=== PATIENT | female | born 1955 | race Caucasian/White ===

== ENCOUNTER 2016-08-29 19:31 | Emergency (ER) | payer SELFPAY ==
[2016-08-29] MEDS ORDERED: ROCEPHIN 1 Gm-D5w 50 ml Bag** 50 ML IV ONE ×2 (19:38→19:47)
[2016-08-29] MEDS ORDERED: Zithromax 500 MG/ 250 ML NaCl Premix 250 ML IV ONE ×2 (19:38→19:46)
[2016-08-29] MEDS ORDERED: PROVENTIL 2.5 MG/3 ML NEB IH ONE ×2 (19:38→19:51)
[2016-08-29] MEDS ORDERED: Nitrostat 0.4 MG (ED) SL ONE ×2 (19:40→19:46)
[2016-08-29] MEDS ORDERED: BABY ASPIRIN 81 MG CHEW PO ONE (19:43)
[2016-08-29] MEDS ORDERED: Sodium Chloride 0.9% 1000 ML 1,000 ML IV SCH (19:45)
[2016-08-29] MEDS ORDERED: BABY ASPIRIN 81 MG CHEW ONE (19:46)
[2016-08-29] MEDS ORDERED: Sodium Chloride 0.9% 1000 ML 1,000 ML ONE (19:46)
--- NOTE | 2016-08-29 19:49 | ERPHSYRPT ---
- History of Present Illness Time Seen by Provider: 08/29/16 19:37 Historian: patient Exam Limitations: no limitations Patient Subjective Stated Complaint: Pt sts intermittent chest pain substernal 8 /10 to 10/10 radiating through to back. Sts intermittent diaphoresis and shortness of breath with pain. Sts burning sensation. Has hx of GERD, DC, HTN. Sts taken tums and Prilosec x 2 today. Triage Nursing Assessment: Pt alert, oriented, answers all questions appropriately. Skin p/w/d, resps non-labored. Pt ambulatory to tx room, steady gait noted. Pt speaking in full sentences without difficulty. Physician History: FOR THE PAST 9 HOURS PT HAS HAD BURNING LOWER MID CHEST PAIN WITH DIAPHORESIS AND SOME SHORTNESS OF AIR; DENIES FEVER, VOMITING, DIARRHEA, ABDOMINAL PAIN. PT HAS HAD COUGH PRODUCTIVE OF GREEN PHLEGM FOR THE PAST 3 WEEKS AND IS ON DAY 9 OF DOXYCYCLINE. Aspirin Treatment Today: 81 mg x 4, provided by ED Allergies/Adverse Reactions: sumatriptan [From Imitrex] Allergy (Verified 08/29/16 19:42) sumatriptan succinate [From Imitrex] Allergy (Verified 08/29/16 19:42) naproxen [From Naprosyn] Adverse Reaction (Verified 08/29/16 19:42) Home Medications: Docusate Sodium 100 mg [Colace 100 MG] 300 mg PO DAILY 02/02/16 [History] Hydrocodone Bit/Acetaminophen [Hydrocodon-Acetaminophn 10-325] 1 each PO Q4HPRN PRN 02/02/16 [History] Metoprolol Tartrate 100 mg PO BID 02/02/16 [History] Nortriptyline HCl [Pamelor] 75 mg PO HS 02/02/16 [History] Pregabalin [Lyrica] 75 mg PO QID 02/02/16 [History] Promethazine HCl 50 mg PO Q6HPRN PRN 02/02/16 [History] Doxycycline Hyclate 100 mg PO BID 08/29/16 [History] Omeprazole [Prilosec] 40 mg PO DAILY 08/29/16 [History] Topiramate [Topamax] 0 mg PO 08/29/16 [History] Hx Tetanus, Diphtheria Vaccination/Date Given: Yes Hx Influenza Vaccination/Date Given: No Hx Pneumococcal Vaccination/Date Given: No Immunizations Up to Date: No - Review of Systems Constitutional: No Fever Respiratory: Cough, Dyspnea Cardiac: Chest Pain Abdominal/Gastrointestinal: No Abdominal Pain, No Nausea, No Vomiting, No Diarrhea Skin: No Rash Endocrine: Excessive Sweating All Other Systems: Reviewed and Negative - Past Medical History Pertinent Past Medical History: Yes Neurological History: Other ENT History: No Pertinent History Cardiac History: Hypertension Respiratory History: Other (smoker) Endocrine Medical History: No Pertinent History Musculoskeletal History: No Pertinent History GI Medical History: No Pertinent History History: No Pertinent History Psycho-Social History: No Pertinent History Female Reproductive Disorders: No Pertinent History Other Medical History: Migraines, pinched nerve in back - Past Surgical History Past Surgical History: Yes Cardiac: No Pertinent History Respiratory: No Pertinent History Gastrointestinal: No Pertinent History Musculoskeletal: No Pertinent History Female Surgical History: Section Other Surgical History: D/C, Dermoid cyst removed from head - Social History Smoking Status: Former smoker How long have you smoked: 30 Exposure to second hand smoke: No Alcohol Use: Socially Drug Use: none Patient Lives Alone: No Significant Family History: no pertinent family hx - Female History Hx Now: No - Nursing Vital Signs Temperature: 97.4 F Temperature Source: Oral Pulse Rate: 72 Respiratory Rate: 16 Blood Pressure: 151/74 Pain Intensity: 8 - Physical Exam General Appearance: alert, anxiety Eye Exam: PERRL/EOMI Ears, Nose, Throat Exam: TMs normal, moist mucous membranes, pharyngeal erythema (MILD) Neck Exam: normal inspection Respiratory Exam: wheezing (MINIMAL EXPIRATORY WHEEZING OVER POSTERIOR BASES.) Cardiovascular Exam: normal heart sounds Gastrointestinal/Abdomen Exam: soft, normal bowel sounds Back Exam: normal range of motion Extremity Exam: normal inspection, No pedal edema Neurologic Exam: alert, cooperative Skin Exam: warm, dry SpO2 Interpretation: normal SpO2: 94 Oxygen Delivery: Room Air - Course Nursing assessment & vital signs reviewed: Yes EKG Interpreted by Me: RATE (61), Sinus Rhythm, NORMAL AXIS, NORMAL INTERVALS - Radiology Exams Chest X-ray Interpretation: Interpreted by me (NODULE LEFT LOWER LUNG(OLD)) Ordered Tests: Active Orders 24 hr Category Date Time Status Production Stage Manager STAT Care 08/29/16 19:38 Active EKG-ER Only STAT Care 08/29/16 19:38 Active IV Insertion STAT Care 08/29/16 19:38 Active Oxygen-ED Only NASAL CANNULA 2 lpm Care 08/29/16 19:38 Active Pulse Oximetry (ED) STAT Care 08/29/16 19:38 Active CHEST 1 VIEW (PORTABLE) Stat Exams 08/29/16 19:39 Taken AMYLASE Stat Lab 08/29/16 19:59 Completed BLOOD CULTURE Stat Lab 08/29/16 20:03 Received CBC W DIFF Stat Lab 08/29/16 19:59 Completed CMP Stat Lab 08/29/16 19:59 Completed CULTURE, THROAT Stat Lab 08/29/16 20:03 Received CULTURE,SPUTUM Stat Lab 08/29/16 21:02 Received LIPASE Stat Lab 08/29/16 19:59 Completed MAGNESIUM Stat Lab 08/29/16 19:59 Completed Manual Differential NC Stat Lab 08/29/16 19:59 Completed C[place]ay Screen Stat Lab 08/29/16 20:03 Completed NT PRO BNP Stat Lab 08/29/16 19:59 Completed PROTIME WITH INR Stat Lab 08/29/16 19:59 Completed PTT Stat Lab 08/29/16 19:59 Completed STREP SCREEN-BETA A Stat Lab 08/29/16 20:03 Completed TROPONIN Stat Lab 08/29/16 19:59 Completed Respiratory Nebulizer STAT RT 08/29/16 19:40 Completed Medication Summary Generic Name Dose Route Start Last Admin Trade Name Freq PRN Reason Stop Dose Admin Sodium Chloride 1,000 mls @ 100 mls/hr 08/29/16 19:45 08/29/16 19:52 Sodium Chloride 0.9% 1000 Ml IV 09/28/16 19:44 100 mls/hr .Q10H GILMER Administration Discontinued Medications Generic Name Dose Route Start Last Admin Trade Name Freq PRN Reason Stop Dose Admin Albuterol Sulfate 2.5 mg 08/29/16 19:38 08/29/16 19:57 Proventil 2.5 Mg/3 Ml Neb IH 08/29/16 19:39 2.5 mg STAT ONE Administration Albuterol Sulfate Confirm 08/29/16 19:51 Proventil 2.5 Mg/3 Ml Neb Administered 08/29/16 19:52 Dose 2.5 mg IH .STK-MED ONE Aspirin 324 mg 08/29/16 19:43 08/29/16 19:52 Baby Aspirin 81 Mg Chew PO 08/29/16 19:44 324 mg STAT ONE Administration Aspirin Confirm 08/29/16 19:46 Baby Aspirin 81 Mg Chew Administered 08/29/16 19:47 Dose 324 mg .ROUTE .STK-MED ONE Diazepam 5 mg 08/29/16 21:07 08/29/16 21:12 Valium 5 Mg PO 08/29/16 21:08 5 mg STAT ONE Administration Diazepam Confirm 08/29/16 21:11 Valium 5 Mg Administered 08/29/16 21:12 Dose 5 mg .ROUTE .STK-MED ONE Azithromycin 250 mls @ 125 mls/hr 08/29/16 19:38 08/29/16 20:17 Zithromax 500 Mg/ 250 Ml Nacl Premix IV 08/29/16 21:37 125 mls/hr STAT ONE Administration Ceftriaxone Sodium/Dextrose 50 mls @ 100 mls/hr 08/29/16 19:38 08/29/16 19:52 Rocephin 1 Gm-D5w 50 Ml Bag IV 08/29/16 20:07 100 mls/hr STAT ONE Administration Azithromycin Confirm 08/29/16 19:46 Zithromax 500 Mg/ 250 Ml Nacl Premix Administered 08/29/16 19:47 Dose 250 mls @ ud IV .STK-MED ONE Sodium Chloride Confirm 08/29/16 19:46 Sodium Chloride 0.9% 1000 Ml Administered 08/29/16 19:47 Dose 1,000 mls @ ud .ROUTE .STK-MED ONE Ceftriaxone Sodium/Dextrose Confirm 08/29/16 19:47 Rocephin 1 Gm-D5w 50 Ml Bag Administered 08/29/16 19:48 Dose 50 mls @ ud IV .STK-MED ONE Sodium Chloride 1,000 mls @ 999 mls/hr 08/29/16 21:07 08/29/16 21:12 Sodium Chloride 0.9% 1000 Ml IV 08/29/16 22:07 999 mls/hr .Q1H1M STA Administration Nitroglycerin 0.4 mg 08/29/16 19:40 08/29/16 19:52 Nitrostat 0.4 Mg (Ed) SL 08/29/16 19:41 0.4 mg STAT ONE Administration Nitroglycerin Confirm 08/29/16 19:46 Nitrostat 0.4 Mg (Ed) Administered 08/29/16 19:47 Dose 0.4 mg SL .STK-MED ONE Lab/Rad Data: Laboratory Result Diagrams 08/29/16 19:59 08/29/16 19:59 Laboratory Results 08/29/16 08/29/16 08/29/16 Range/Units 20:03 20:03 20:03 WBC (4.0-10.5) K/mm3 RBC (4.1-5.4) M/mm3 Hgb (12.0-16.0) gm/dl Hct (35-47) % MCV (78-100) fl MCH (26-32) pg MCHC (32-36) g/dl RDW (11.5-14.0) % Plt Count (150-450) K/mm3 MPV (6-9.5) fl Segmented Neutrophils (36.0-66.0) % Band Neutrophils (0.0-2.0) % Lymphocytes (Manual) (24-44) % Monocytes (Manual) (0.0-12.0) % Eosinophils (Manual) (0.00-3.0) % Atypical Lymphocytes % INR (0.8-3.0) PTT (25.3-37.0) SECONDS Sodium (136-145) mEq/L Potassium (3.5-5.1) mEq/L Chloride (98-107) mEq/L Carbon Dioxide (21-32) mEq/L Anion Gap (5-15) MEQ/L BUN (9-20) mg/dL Creatinine (0.55-1.30) mg/dl Estimated GFR ML/MIN Glucose (70-110) MG/DL Calcium (8.5-10.1) mg/dL Magnesium (1.8-2.4) mg/dL Total Bilirubin (0.2-1.0) mg/dL AST (15-37) U/L ALT (12-78) U/L Alkaline Phosphatase (46-116) U/L Troponin I (0.000-0.056) ng/ml NT-Pro-B Natriuret Pep (0-125) pg/ml Serum Total Protein (6.4-8.2) gm/dL Albumin (3.4-5.0) g/dL Amylase (25-115) U/L Lipase (73-393) U/L Monoscreen NEGATIVE (Negative) Streptococcus Screen NEGATIVE (Negative) Resp Infection Panel NEGATIVE (Negative) 08/29/16 08/29/16 08/29/16 Range/Units 19:59 19:59 19:59 WBC (4.0-10.5) K/mm3 RBC (4.1-5.4) M/mm3 Hgb (12.0-16.0) gm/dl Hct (35-47) % MCV (78-100) fl MCH (26-32) pg MCHC (32-36) g/dl RDW (11.5-14.0) % Plt Count (150-450) K/mm3 MPV (6-9.5) fl Segmented Neutrophils (36.0-66.0) % Band Neutrophils (0.0-2.0) % Lymphocytes (Manual) (24-44) % Monocytes (Manual) (0.0-12.0) % Eosinophils (Manual) (0.00-3.0) % Atypical Lymphocytes % INR 0.96 (0.8-3.0) PTT 27.1 (25.3-37.0) SECONDS Sodium 140 (136-145) mEq/L Potassium 4.6 (3.5-5.1) mEq/L Chloride 102 (98-107) mEq/L Carbon Dioxide 28.9 (21-32) mEq/L Anion Gap 13.2 (5-15) MEQ/L BUN 28 H (9-20) mg/dL Creatinine 1.03 (0.55-1.30) mg/dl Estimated GFR 58 ML/MIN Glucose 109 (70-110) MG/DL Calcium 9.2 (8.5-10.1) mg/dL Magnesium 2.2 (1.8-2.4) mg/dL Total Bilirubin 0.2 (0.2-1.0) mg/dL AST 13 L (15-37) U/L ALT 26 (12-78) U/L Alkaline Phosphatase 100 (46-116) U/L Troponin I < 0.017 (0.000-0.056) ng/ml NT-Pro-B Natriuret Pep 66 (0-125) pg/ml Serum Total Protein 7.1 (6.4-8.2) gm/dL Albumin 3.7 (3.4-5.0) g/dL Amylase 27 (25-115) U/L Lipase 111 (73-393) U/L Monoscreen (Negative) Streptococcus Screen (Negative) Resp Infection Panel (Negative) 08/29/16 Range/Units 19:59 WBC 10.1 (4.0-10.5) K/mm3 RBC 4.84 (4.1-5.4) M/mm3 Hgb 13.4 (12.0-16.0) gm/dl Hct 41.1 (35-47) % MCV 84.9 (78-100) fl MCH 27.7 (26-32) pg MCHC 32.6 (32-36) g/dl RDW 15.5 H (11.5-14.0) % Plt Count 349 (150-450) K/mm3 MPV 9.8 H (6-9.5) fl Segmented Neutrophils 36 (36.0-66.0) % Band Neutrophils 1 (0.0-2.0) % Lymphocytes (Manual) 36 (24-44) % Monocytes (Manual) 7 (0.0-12.0) % Eosinophils (Manual) 1 (0.00-3.0) % Atypical Lymphocytes 19 % INR (0.8-3.0) PTT (25.3-37.0) SECONDS Sodium (136-145) mEq/L Potassium (3.5-5.1) mEq/L Chloride (98-107) mEq/L Carbon Dioxide (21-32) mEq/L Anion Gap (5-15) MEQ/L BUN (9-20) mg/dL Creatinine (0.55-1.30) mg/dl Estimated GFR ML/MIN Glucose (70-110) MG/DL Calcium (8.5-10.1) mg/dL Magnesium (1.8-2.4) mg/dL Total Bilirubin (0.2-1.0) mg/dL AST (15-37) U/L ALT (12-78) U/L Alkaline Phosphatase (46-116) U/L Troponin I (0.000-0.056) ng/ml NT-Pro-B Natriuret Pep (0-125) pg/ml Serum Total Protein (6.4-8.2) gm/dL Albumin (3.4-5.0) g/dL Amylase (25-115) U/L Lipase (73-393) U/L Monoscreen (Negative) Streptococcus Screen (Negative) Resp Infection Panel (Negative) - Departure Time of Disposition: 22:29 Departure Disposition: Home Clinical Impression: BRONCHITIS, PHARYNGITIS, MILD DEHYDRATION Condition: Fair Critical Care Time: No Instructions: Chest Pain, Bronchitis Additional Instructions: FOLLOW UP WITH PRIVATE DOCTOR TOMORROW. Prescriptions: Guaifenesin/Codeine Phosphate [Robitussin AC Syrup] 10 ml PO Q4H PRN PRN #120 ml PRN Reason: Cough Azithromycin 250 mg [Zithromax 250 MG TABLET] 250 mg PO ZPACK #6 tablet
[2016-08-29 20:08] LABS: Mean Cell Volume 84.9 fl (78-100); Mean Corpuscular Hemoglobin 27.7 pg (26-32); Mean Platelet Volume 9.8 fl (6-9.5); Platelet Count 349 K/mm3 (150-450); Red Blood Count 4.84 M/mm3 (4.1-5.4); Red Cell Distribution Width 15.5 % (11.5-14.0); White Blood Count 10.1 K/mm3 (4.0-10.5)
[2016-08-29 20:25] LABS: LIPASE 111 U/L (73-393)
[2016-08-29 20:26] LABS: INR 0.96 (0.8-3.0); PROTIME 10.8 SECONDS (9.95-12.35)
[2016-08-29 20:29] LABS: PTT 27.1 SECONDS (25.3-37.0)
[2016-08-29 20:38] LABS: ALBUMIN 3.7 g/dL (3.4-5.0); ALKALINE PHOSPHATASE 100 U/L (46-116); ANION GAP 13.2 MEQ/L (5-15); BILIRUBIN,TOTAL 0.2 mg/dL (0.2-1.0); BLOOD UREA NITROGEN 28 mg/dL (9-20); CHLORIDE 102 mEq/L (98-107); Carbon Dioxide 28.9 mEq/L (21-32); Glucose 109 MG/DL (70-110); MAGNESIUM 2.2 mg/dL (1.8-2.4); Potassium 4.6 mEq/L (3.5-5.1); SGOT/AST 13 U/L (15-37); SGPT/ALT 26 U/L (12-78); SODIUM 140 mEq/L (136-145); TROPONIN < 0.017 ng/ml (0.000-0.056); Total Protein 7.1 gm/dL (6.4-8.2)
[2016-08-29 20:41] LABS: ATYPICAL LYMPHS 19 %; BAND 1 % (0.0-2.0); Eosinophil 1 % (0.00-3.0); Total Cells Counted 100
[2016-08-29] MEDS ORDERED: Sodium Chloride 0.9% 1000 ML 1,000 ML IV STA (21:07)
[2016-08-29] MEDS ORDERED: Valium 5 MG PO ONE (21:07)
[2016-08-29] MEDS ORDERED: Valium 5 MG ONE (21:11)
[2016-08-29 22:38] VITALS: BP 129/75; PULSE 76; O2SAT 95
--- NOTE | 2016-08-30 08:44 | XRAY ---
Indication: Chest pain and short of breath. Comparison: November 30, 2014 Portable chest stable and nonacute again with left base calcified granuloma and right base subsegmental atelectasis/scarring. Remaining heart and lungs normal. No new/acute findings.
== END 2016-08-29 22:41 | disposition home or self-care (01) ==
LOC: ED 19:31
DX: J40 Bronchitis, not specified as acute or chronic (principal); J02.9 Acute pharyngitis, unspecified; E86.0 Dehydration; R07.89 Other chest pain; R61 Generalized hyperhidrosis; R06.02 Shortness of breath; R05 Cough; I10 Essential (primary) hypertension
CPT/HCPCS: 36000; 36415; 71010; 80053; 82150; 83690; 83735; 83880; 84484; 85025; 85610; 85730; 86308; 87040; 87070; 87077; 87430; 87631; 93005; 93041; 94640; 96360; 96361; 96365; 96366; 96367; 99284; J0456; J0696

== ENCOUNTER 2016-12-02 11:54 | Emergency (ER) | payer OTHER, SELFPAY ==
[2016-12-02] MEDS ORDERED: TORAdol 30 mg Injection IM ONE (12:04)
[2016-12-02 12:05] VITALS: O2SAT 97
[2016-12-02] MEDS ORDERED: TORAdol 30 mg Injection ONE (12:06)
--- NOTE | 2016-12-02 13:09 | ERPHSYRPT ---
- History of Present Illness Time Seen by Provider: 12/02/16 13:06 Source: patient, family Exam Limitations: no limitations Patient Subjective Stated Complaint: fall Triage Nursing Assessment: fell last night and injured lt knee. no bruising or swelling noted. pain to medial rt knee. no previous injury. pulse present. denies other injury Physician History: fall last night, hurt her left knee, able to walk with walsh. no other injury. no other symptoms Method of Injury: fell Occurred: yesterday Quality: constant Severity of Pain-Max: mild Severity of Pain-Current: mild Lower Extremities Pain: knee: left Modifying Factors: Improves With: nothing Associated Symptoms: none Allergies/Adverse Reactions: sumatriptan [From Imitrex] Allergy (Verified 12/02/16 12:05) sumatriptan succinate [From Imitrex] Allergy (Verified 12/02/16 12:05) naproxen [From Naprosyn] Adverse Reaction (Verified 12/02/16 12:05) Home Medications: Docusate Sodium 100 mg [Colace 100 MG] 300 mg PO DAILY 02/02/16 [History] Hydrocodone Bit/Acetaminophen [Hydrocodon-Acetaminophn 10-325] 1 each PO Q4HPRN PRN 02/02/16 [History] Metoprolol Tartrate 100 mg PO BID 02/02/16 [History] Nortriptyline HCl [Pamelor] 75 mg PO HS 02/02/16 [History] Pregabalin [Lyrica] 75 mg PO QID 02/02/16 [History] Promethazine HCl 50 mg PO Q6HPRN PRN 02/02/16 [History] Doxycycline Hyclate 100 mg PO BID 08/29/16 [History] Omeprazole [Prilosec] 40 mg PO DAILY 08/29/16 [History] Topiramate [Topamax] 0 mg PO 08/29/16 [History] Hx Tetanus, Diphtheria Vaccination/Date Given: Yes Hx Influenza Vaccination/Date Given: No Hx Pneumococcal Vaccination/Date Given: No Immunizations Up to Date: Yes - Review of Systems Constitutional: No Symptoms Eyes: No Symptoms Ears, Nose, & Throat: No Symptoms Respiratory: No Symptoms Cardiac: No Symptoms Musculoskeletal: Joint Pain (left knee) - Past Medical History Pertinent Past Medical History: Yes Neurological History: Other ENT History: No Pertinent History Cardiac History: Hypertension Respiratory History: Other Endocrine Medical History: No Pertinent History Musculoskeletal History: No Pertinent History GI Medical History: No Pertinent History History: No Pertinent History Psycho-Social History: No Pertinent History Female Reproductive Disorders: No Pertinent History Other Medical History: Migraines, pinched nerve in back. hyperthyroid - Past Surgical History Past Surgical History: Yes Cardiac: No Pertinent History Respiratory: No Pertinent History Gastrointestinal: No Pertinent History Musculoskeletal: No Pertinent History Female Surgical History: Section Other Surgical History: D/C, Dermoid cyst removed from head - Social History Smoking Status: Current every day smoker How long have you smoked: 30 Exposure to second hand smoke: Yes Alcohol Use: Socially Drug Use: none Patient Lives Alone: No Significant Family History: no pertinent family hx - Female History Hx Now: No - Nursing Vital Signs Nursing Vital Signs: Initial Vital Signs Temperature 97.8 F Temperature Source Oral Pulse Rate 67 Respiratory Rate 18 Blood Pressure [Right Arm] 118/56 Pain Intensity 9 - Physical Exam General Appearance: no apparent distress Eyes, Ears, Nose, Throat Exam: normal ENT inspection Hips Exam: bilateral: non-tender Legs Exam: bilateral leg: non-tender Knees Exam: left knee: pain Ankle Exam: bilateral ankle: non-tender Foot Exam: bilateral foot: non-tender SpO2: 97 - Course Nursing assessment & vital signs reviewed: Yes - Radiology Exams Knee X-ray Interpretation: Reviewed by me, Negative, No Fracture Ordered Tests: Active Orders 24 hr Category Date Time Status KNEE (3 VIEWS) Stat Exams 12/02/16 12:04 Taken Medication Summary Discontinued Medications Generic Name Dose Route Start Last Admin Trade Name Guy PRN Reason Stop Dose Admin Ketorolac Tromethamine 30 mg 12/02/16 12:04 12/02/16 12:06 Toradol 30 Mg Injection IM 12/02/16 12:05 30 mg STAT ONE Administration Ketorolac Tromethamine Confirm 12/02/16 12:06 Toradol 30 Mg Injection Administered 12/02/16 12:07 Dose 30 mg .ROUTE .STK-MED ONE - Progress Progress: improved Counseled pt/family regarding: diagnosis, need for follow-up, rad results - Departure Time of Disposition: 13:08 Departure Disposition: Home Clinical Impression: Knee pain, left Qualifiers: Chronicity: acute Qualified Code(s): M25.562 - Pain in left knee Fall at home Qualifiers: Encounter type: initial encounter Qualified Code(s): W19.XXXA - Unspecified fall, initial encounter; Y92.099 - Unspecified place in other non-institutional residence as the place of occurrence of the external cause Condition: Stable Critical Care Time: No Referrals: GEOVANNA ZAPATA [Primary Care Provider] - Instructions: Prevent Falls, Contusion Additional Instructions: SPRAINS/STRAINS/CONTUSIONS 1. Rest the affected area as much as possible for the next few days. 2. Apply ice to the affected area for 20-30 minutes at a time, several times a day. 3. If you receive an elastic wrap, wear it only while awake for comfort and support. Re-wrap the elastic wrap if it feels too tight or too loose. 4. If swelling is present, elevate the affected part above the level of the heart for at least 2 to 3 days. 5. Use splints, slings, or crutches as instructed. 6. Watch for severe swelling, coldness, numbness, and discoloration of the fingers and toes. See your family physician or return to the emergency department if any of these are noted.
[2016-12-02 13:15] VITALS: BP 111/55; PULSE 64
--- NOTE | 2016-12-02 21:43 | XRAY ---
Indication: Pain following fall. Comparison: None 3 views of the left knee demonstrate minimal osteopenia and small nonspecific suprapatellar effusion. No other bony, articular, or soft tissue abnormalities.
== END 2016-12-02 13:15 | disposition home or self-care (01) ==
LOC: ED 11:54
DX: M25.562 Pain in left knee (principal); W19.XXXA Unspecified fall, initial encounter; Y92.099 Unspecified place in other non-institutional residence as the place of occurrence of the external cause
CPT/HCPCS: 73562; 96372; 99284; J1885

== ENCOUNTER 2017-08-05 09:00 | Observation (INO) | payer OTHER, SELFPAY ==
[2017-08-05] MEDS ORDERED: DUONEB 0.5-3 MG/3 ml Neb IH ONE (09:32)
[2017-08-05] MEDS ORDERED: solu-MEDROL 125 MG IV ONE (09:49)
[2017-08-05] MEDS ORDERED: Sodium Chloride 0.9% 1000 ML 1,000 ML IV STA (09:49)
[2017-08-05] MEDS ORDERED: PROVENTIL 2.5 MG/3 ML NEB IH ONE ×3 (09:50→11:40)
[2017-08-05] MEDS ORDERED: Ativan 2 MG/1 ML VIAL ONE ×2 (09:53→09:57)
[2017-08-05] MEDS ORDERED: Ativan 2 MG/1 ML VIAL IV ONE (09:53)
[2017-08-05] MEDS ORDERED: solu-MEDROL 125 MG ONE (09:57)
[2017-08-05] MEDS ORDERED: Sodium Chloride 0.9% 1000 ML 1,000 ML ONE (09:57)
[2017-08-05 10:18] LABS: BASOPHIL % 0.6 % (0.0-0.4); Eosinophil % 1.4 % (0.00-5.0); Granulocytes % 36.4 % (36.0-66.0); Lymphocytes % 42.8 % (24.0-44.0); Mean Cell Volume 82.7 fl (78-100); Mean Corpuscular Hemoglobin 27.1 pg (26-32); Mean Platelet Volume 10.4 fl (6-9.5); Monocytes % 18.8 % (0.0-12.0); Platelet Count 221 K/mm3 (150-450); Red Blood Count 5.21 M/mm3 (4.1-5.4); Red Cell Distribution Width 13.9 % (11.5-14.0)
--- NOTE | 2017-08-05 10:35 | ERPHSYRPT ---
- History of Present Illness Time Seen by Provider: 08/05/17 09:45 Source: patient Exam Limitations: no limitations Patient Subjective Stated Complaint: began feeling ill yesterday but throughout night has been getting worse Triage Nursing Assessment: c/o SOA, diminished Rt side, LLL occ wheeze, tight breath sounds, no fevers known Physician History: Patient complains of cough, sob , wheezing since yesterday no fevers, no vomiting PMH: Hyperthyroidism, asthma, HTN, Migraines, pinched nerve in Bback PSH dermoid cyst in head c section social history: positive tobacco use Severity: moderate Modifying Factors: Improves With: nothing Associated Symptoms: No nausea, No vomiting, No abdominal pain, No shortness of breath, No heartburn, No diaphoresis, No cough, No chills, No chest pain, No fever, No headaches, No loss of appetite, No malaise, No rash, No syncope, No seizure, No weakness Allergies/Adverse Reactions: sumatriptan [From Imitrex] Allergy (Verified 12/02/16 12:05) sumatriptan succinate [From Imitrex] Allergy (Verified 12/02/16 12:05) naproxen [From Naprosyn] Adverse Reaction (Verified 12/02/16 12:05) Home Medications: Docusate Sodium 100 mg [Colace 100 MG] 300 mg PO DAILY 02/02/16 [History] Hydrocodone Bit/Acetaminophen [Hydrocodon-Acetaminophn 10-325] 1 each PO Q4HPRN PRN 02/02/16 [History] Metoprolol Tartrate 100 mg PO BID 02/02/16 [History] Nortriptyline HCl [Pamelor] 75 mg PO HS 02/02/16 [History] Promethazine HCl 50 mg PO Q6HPRN PRN 02/02/16 [History] Omeprazole [Prilosec] 40 mg PO DAILY 08/29/16 [History] Hx Tetanus, Diphtheria Vaccination/Date Given: Yes Hx Influenza Vaccination/Date Given: No Hx Pneumococcal Vaccination/Date Given: No Immunizations Up to Date: Yes - Review of Systems Constitutional: Fever, No Chills, No Fatigue, No Lethargy, No Night Sweats, No Weakness, No Weight Loss Eyes: No Symptoms Ears, Nose, & Throat: No Symptoms, No Ear Pain, No Ear Discharge, No Hearing Changes, No Tinnitus, No Nose Pain, No Nose Congestion, No Nose Discharge, No Sinus Drainage, No Epistaxis, No Mouth Pain, No Mouth Swelling, No Loose Teeth, No Throat Pain, No Throat Swelling, No Hoarse, No Painful Swallowing, No Snoring Respiratory: Cough, Dyspnea, Wheezing, No Cyanosis, No Stridor Cardiac: No Chest Pain, No Edema, No Syncope Abdominal/Gastrointestinal: No Abdominal Pain, No Nausea, No Vomiting, No Diarrhea Genitourinary Symptoms: No Dysuria Musculoskeletal: No Back Pain, No Neck Pain Skin: No Rash Neurological: No Dizziness, No Focal Weakness, No Sensory Changes Psychological: No Symptoms Endocrine: No Symptoms All Other Systems: Reviewed and Negative - Past Medical History Pertinent Past Medical History: Yes Neurological History: Other ENT History: No Pertinent History Cardiac History: Hypertension Respiratory History: Asthma, Other Endocrine Medical History: Hyperthyroidism Musculoskeletal History: No Pertinent History GI Medical History: No Pertinent History History: No Pertinent History Psycho-Social History: No Pertinent History Female Reproductive Disorders: No Pertinent History Other Medical History: Migraines, pinched nerve in back - Past Surgical History Past Surgical History: Yes Cardiac: No Pertinent History Respiratory: No Pertinent History Gastrointestinal: No Pertinent History Musculoskeletal: No Pertinent History Female Surgical History: Section Other Surgical History: D/C, Dermoid cyst removed from head - Social History Smoking Status: Current every day smoker How long have you smoked: 30 Exposure to second hand smoke: Yes Alcohol Use: Socially Drug Use: none Patient Lives Alone: No Significant Family History: no pertinent family hx - Female History Hx Now: No - Nursing Vital Signs Nursing Vital Signs: Initial Vital Signs Temperature 98 F 08/05/17 09:22 Pulse Rate 90 08/05/17 09:22 Respiratory Rate 28 H 08/05/17 09:22 Blood Pressure 153/96 08/05/17 09:22 O2 Sat by Pulse Oximetry 98 08/05/17 09:22 Pain Scale Pain Intensity 8 - Physical Exam General Appearance: moderate distress, alert, anxiety Eye Exam: PERRL/EOMI, eyes nml inspection Ears, Nose, Throat Exam: normal ENT inspection, TMs normal, pharynx normal, moist mucous membranes Neck Exam: normal inspection, non-tender, supple, full range of motion Respiratory Exam: diminished breath sounds, wheezing Cardiovascular Exam: regular rate/rhythm, normal heart sounds, normal peripheral pulses Gastrointestinal/Abdomen Exam: soft, normal bowel sounds, No tenderness, No mass Back Exam: normal inspection, normal range of motion, No CVA tenderness, No vertebral tenderness Extremity Exam: normal inspection, normal range of motion, pelvis stable Neurologic Exam: alert, oriented x 3, cooperative, normal mood/affect, nml cerebellar function, nml station & gait, sensation nml, No motor deficits Skin Exam: normal color, warm, dry, No rash Lymphatic Exam: No adenopathy SpO2 Interpretation: normal (98%) SpO2: 98 Oxygen Delivery: Room Air - Course Nursing assessment & vital signs reviewed: Yes EKG Interpreted by Me: RATE (95 bpm), Sinus Rhythm, NORMAL AXIS, Other (ekg: normal sinus rhythm 95 bpm, normal axis, no0 acute st or t wave changes noted. compared to 08/29/2016) - Radiology Exams Chest X-ray Interpretation: Interpreted by me (no acute disease process) - CT Exams Chest CT Interpretation: Tele-radiologist Report (no evidence of central PE, limited evaluation due to exclusion from the field of view of bilateral lung apices. left lower lobe peripheral nodule folloew up in 6 months recommended.) Ordered Tests: Active Orders 24 hr Category Date Time Status Seafood Processor STAT Care 08/05/17 09:49 Active EKG-ER Only STAT Care 08/05/17 09:49 Active IV Insertion STAT Care 08/05/17 09:49 Active CHEST 1 VIEW (PORTABLE) Stat Exams 08/05/17 09:49 Taken CHEST WITH CONTRAST [CT] Stat Exams 08/05/17 10:54 Taken CBC W DIFF Stat Lab 08/05/17 09:55 Completed CMP Routine Lab 08/05/17 09:55 Completed D-DIMER QUANTITATION Stat Lab 08/05/17 09:55 Completed NT PRO BNP Routine Lab 08/05/17 09:55 Completed PROTIME WITH INR Stat Lab 08/05/17 09:55 Completed PTT Stat Lab 08/05/17 09:55 Completed TROPONIN Q3H Lab 08/05/17 09:55 Completed TROPONIN Q3H Lab 08/05/17 12:49 Completed TROPONIN Q3H Lab 08/05/17 16:00 Ordered TROPONIN Q3H Lab 08/05/17 19:00 Ordered TROPONIN Q3H Lab 08/05/17 22:00 Ordered Respiratory Nebulizer STAT RT 08/05/17 09:30 Completed Respiratory Nebulizer STAT RT 08/05/17 11:40 Completed Medication Summary Discontinued Medications Generic Name Dose Route Start Last Admin Trade Name Guy OLMOSN Reason Stop Dose Admin Albuterol Sulfate 2.5 mg 08/05/17 09:50 08/05/17 09:30 Proventil 2.5 Mg/3 Ml Neb IH 08/05/17 09:51 2.5 mg STAT ONE Administration Albuterol Sulfate Confirm 08/05/17 11:00 Proventil 2.5 Mg/3 Ml Neb Administered 08/05/17 11:01 Dose 2.5 mg IH .STK-MED ONE Albuterol Sulfate 2.5 mg 08/05/17 11:40 08/05/17 11:05 Proventil 2.5 Mg/3 Ml Neb IH 08/05/17 11:41 2.5 mg STAT ONE Administration Albuterol/Ipratropium Confirm 08/05/17 09:32 Duoneb 0.5-3 Mg/3 Ml Neb Administered 08/05/17 09:33 Dose 3 ml IH .STK-MED ONE Sodium Chloride 1,000 mls @ 999 mls/hr 08/05/17 09:49 08/05/17 09:59 Sodium Chloride 0.9% 1000 Ml IV 08/05/17 10:49 999 mls/hr .Q1H1M STA Administration Sodium Chloride Confirm 08/05/17 09:57 Sodium Chloride 0.9% 1000 Ml Administered 08/05/17 09:58 Dose 1,000 mls @ ud .ROUTE .STK-MED ONE Lorazepam 1 mg 08/05/17 09:53 08/05/17 09:59 Ativan 2 Mg/1 Ml Vial IV 08/05/17 09:54 1 mg STAT ONE Administration Lorazepam Confirm 08/05/17 09:53 Ativan 2 Mg/1 Ml Vial Administered 08/05/17 09:54 Dose 2 mg .ROUTE .STK-MED ONE Lorazepam Confirm 08/05/17 09:57 Ativan 2 Mg/1 Ml Vial Administered 08/05/17 09:58 Dose 2 mg .ROUTE .STK-MED ONE Methylprednisolone Sodium Succinate 125 mg 08/05/17 09:49 08/05/17 09:59 Solu-Medrol 125 Mg IV 08/05/17 09:50 125 mg STAT ONE Administration Methylprednisolone Sodium Succinate Confirm 08/05/17 09:57 Solu-Medrol 125 Mg Administered 08/05/17 09:58 Dose 125 mg .ROUTE .STK-MED ONE Lab/Rad Data: Laboratory Result Diagrams 08/05/17 09:55 08/05/17 09:55 Laboratory Results 08/05/17 08/05/17 08/05/17 Range/Units 12:49 09:55 09:55 WBC (4.0-10.5) K/mm3 RBC (4.1-5.4) M/mm3 Hgb (12.0-16.0) gm/dl Hct (35-47) % MCV (78-100) fl MCH (26-32) pg MCHC (32-36) g/dl RDW (11.5-14.0) % Plt Count (150-450) K/mm3 MPV (6-9.5) fl Gran % (36.0-66.0) % Lymphocytes % (24.0-44.0) % Monocytes % (0.0-12.0) % Eosinophils % (0.00-5.0) % Basophils % (0.0-0.4) % Basophils # (0-0.4) INR 1.04 (0.8-3.0) APTT 34.0 (25.3-37.0) SECONDS D-Dimer 1232.12 H* (0-500) ng/mL Sodium (136-145) mEq/L Potassium (3.5-5.1) mEq/L Chloride (98-107) mEq/L Carbon Dioxide (21-32) mEq/L Anion Gap (5-15) MEQ/L BUN (9-20) mg/dL Creatinine (0.55-1.30) mg/dl Estimated GFR ML/MIN Glucose (70-110) MG/DL Calcium (8.5-10.1) mg/dL Total Bilirubin (0.2-1.0) mg/dL AST (15-37) U/L ALT (12-78) U/L Alkaline Phosphatase (46-116) U/L Troponin I < 0.017 (0.000-0.056) ng/ml NT-Pro-B Natriuret Pep (0-125) pg/ml Serum Total Protein (6.4-8.2) gm/dL Albumin (3.4-5.0) g/dL 08/05/17 08/05/17 Range/Units 09:55 09:55 WBC 5.0 (4.0-10.5) K/mm3 RBC 5.21 (4.1-5.4) M/mm3 Hgb 14.1 (12.0-16.0) gm/dl Hct 43.1 (35-47) % MCV 82.7 (78-100) fl MCH 27.1 (26-32) pg MCHC 32.7 (32-36) g/dl RDW 13.9 (11.5-14.0) % Plt Count 221 (150-450) K/mm3 MPV 10.4 H (6-9.5) fl Gran % 36.4 (36.0-66.0) % Lymphocytes % 42.8 (24.0-44.0) % Monocytes % 18.8 H (0.0-12.0) % Eosinophils % 1.4 (0.00-5.0) % Basophils % 0.6 (0.0-0.4) % Basophils # 0.03 (0-0.4) INR (0.8-3.0) APTT (25.3-37.0) SECONDS D-Dimer (0-500) ng/mL Sodium 140 (136-145) mEq/L Potassium 3.4 L (3.5-5.1) mEq/L Chloride 106 (98-107) mEq/L Carbon Dioxide 20.8 L (21-32) mEq/L Anion Gap 16.9 H (5-15) MEQ/L BUN 16 (9-20) mg/dL Creatinine 0.94 (0.55-1.30) mg/dl Estimated GFR > 60 ML/MIN Glucose 97 (70-110) MG/DL Calcium 9.1 (8.5-10.1) mg/dL Total Bilirubin 0.20 (0.2-1.0) mg/dL AST 18 (15-37) U/L ALT 16 (12-78) U/L Alkaline Phosphatase 107 (46-116) U/L Troponin I < 0.017 (0.000-0.056) ng/ml NT-Pro-B Natriuret Pep 349 H (0-125) pg/ml Serum Total Protein 7.5 (6.4-8.2) gm/dL Albumin 3.6 (3.4-5.0) g/dL - Progress Progress: improved Progress Note: 08/05/17 13:43 patient had brief episode of gasping and anxiety shortly after initial evaluation improved with ativa, Patient improved after iv ns, solumedrol, duoneb and albuterol, ct chest negative for central pe case discussed with Dr Weeks will place on observation continue solumedrol begin rocephin, zithromax, duonebs, will place on lovenox 40 mg subcutaneously daily - Departure Time of Disposition: 13:46 Departure Disposition: Observation Clinical Impression: COPD exacerbation Condition: Fair Critical Care Time: No Referrals: GEOVANNA ZAPATA [Primary Care Provider] -
[2017-08-05 10:49] LABS: ALBUMIN 3.6 g/dL (3.4-5.0); ALKALINE PHOSPHATASE 107 U/L (46-116); ANION GAP 16.9 MEQ/L (5-15); BLOOD UREA NITROGEN 16 mg/dL (9-20); CHLORIDE 106 mEq/L (98-107); Carbon Dioxide 20.8 mEq/L (21-32); Glucose 97 MG/DL (70-110); Potassium 3.4 mEq/L (3.5-5.1); SGOT/AST 18 U/L (15-37); SGPT/ALT 16 U/L (12-78); SODIUM 140 mEq/L (136-145); Total Protein 7.5 gm/dL (6.4-8.2)
[2017-08-05 10:50] LABS: TROPONIN < 0.017 ng/ml (0.000-0.056)
[2017-08-05 11:08] LABS: INR 1.04 (0.8-3.0); PROTIME 11.6 SECONDS (9.95-12.35)
[2017-08-05] MEDS ORDERED: ROCEPHIN 1 Gm-D5w 50 ml Bag** 1 G/50 ML IVPB IV STA (13:47)
[2017-08-05] MEDS ORDERED: ROCEPHIN 1 Gm-D5w 50 ml Bag** 1 G/50 ML IVPB IV ONE (13:52)
[2017-08-05] MEDS ORDERED: DUONEB 0.5-3 MG/3 ml Neb IH PRN (14:17)
[2017-08-05] MEDS ORDERED: Norco 10/325 MG Tablet PO PRN (15:25)
[2017-08-05] MEDS ORDERED: PROMETHAZINE HCL 50 MG PO PRN (15:25)
[2017-08-05] MEDS ORDERED: PHENERGAN 25 MG PO PRN (15:32)
[2017-08-05] MEDS: Zithromax 500 MG/ 250 ML NaCl Premix 500 MG/250 ML IVPB IV SCH (15:59)
[2017-08-05] MEDS: Sodium Chloride 0.9% 1000 ML 1,000 ML IV SCH (15:59)
[2017-08-05] MEDS: solu-MEDROL 125 MG IV SCH ×2 (17:13→23:17)
[2017-08-05] MEDS ORDERED: ENOXAPARIN SODIUM SQ SCH (18:00)
--- NOTE | 2017-08-05 20:32 | XRAY ---
Indication: Short of breath. Cough and congestion. History asthma. Multiple contiguous axial images obtained through the chest using 80 cc Isovue 370 contrast and PE protocol. Comparison: None There is suboptimal opacification of the pulmonary arteries limiting evaluation of the distal lobar and segmental branches. Also mild respiration artifact. No large central pulmonary embolus. Heart is not enlarged. Aorta is minimally arteriosclerotic without aneurysm/dissection. No pathologic mediastinal/hilar lymphadenopathy. Examination of the lung parenchyma demonstrates mild bilateral dependent atelectasis and left lower lobe calcified granuloma. No suspicious pulmonary mass, infiltrate, consolidation, or effusion. Bony thorax intact. Limited upper abdomen is unremarkable. Impression: 1. CT pulmonary embolus exam limited due to suboptimal opacification and respiration artifact. No large central pulmonary embolus. 2. No acute cardiopulmonary abnormalities. Comment: Preliminary interpretation was made by [facility]. No critical discrepancy. CTDI 36.67
--- NOTE | 2017-08-05 20:34 | XRAY ---
Indication: Cough, congestion, short of breath. Comparison: August 29, 2016. Portable chest again demonstrates normal heart and lungs with left base calcified granuloma. Bony thorax intact. No new/acute findings.
[2017-08-05] MEDS ORDERED: NORTRIPTYLINE HCL 75 MG PO SCH (22:00)
[2017-08-05] MEDS ORDERED: NON-FORMULARY ITEM (Metoprolol Tartrate [Metoprolol Tartrate] 100 MG) PO SCH (22:00)
[2017-08-05] MEDS ORDERED: NORTRIPTYLINE HCL PO SCH (22:00)
[2017-08-05] MEDS: Lopressor 50 MG PO SCH (22:05)
[2017-08-05] MEDS ORDERED: NovoLOG Insulin SQ PRN (22:33)
[2017-08-06] MEDS: Sodium Chloride 0.9% 1000 ML 1,000 ML IV SCH (03:51)
[2017-08-06] MEDS: solu-MEDROL 125 MG IV SCH (05:14)
[2017-08-06 06:32] LABS: Granulocytes % 83.5 % (36.0-66.0); Lymphocytes % 11.8 % (24.0-44.0); Mean Cell Volume 83.5 fl (78-100); Mean Platelet Volume 10.9 fl (6-9.5); Monocytes % 4.7 % (0.0-12.0); Platelet Count 217 K/mm3 (150-450); Red Blood Count 4.48 M/mm3 (4.1-5.4); White Blood Count 6.3 K/mm3 (4.0-10.5)
[2017-08-06 06:43] LABS: Mean Corpuscular Hemoglobin 26.5 pg (26-32)
[2017-08-06 06:54] LABS: ALKALINE PHOSPHATASE 85 U/L (46-116); ANION GAP 10.2 MEQ/L (5-15); BLOOD UREA NITROGEN 12 mg/dL (9-20); CHLORIDE 110 mEq/L (98-107); Carbon Dioxide 24.5 mEq/L (21-32); Glucose 163 MG/DL (70-110); Potassium 3.8 mEq/L (3.5-5.1); SGOT/AST 12 U/L (15-37); SGPT/ALT 16 U/L (12-78); SODIUM 141 mEq/L (136-145); Total Protein 6.3 gm/dL (6.4-8.2)
[2017-08-06 08:16] VITALS: BP 122/71; PULSE 67; O2SAT 95
[2017-08-06] MEDS: Lopressor 50 MG PO SCH (09:29)
--- NOTE | 2017-08-06 09:49 | PCM.HP ---
History of Present Illness - Chief Complaint Chief Complaint: COPD Date: 08/06/17 History of Present Illness: is a 62 year old female. Who lives at home with her and they do not have electricity. they have a gas heater in the kitchen but she sleeps inthe bedroom. She has history of copd and chronic coughing. Yesterday am her family came to wake her up and she was wheezing very loud and very groggy. She was not wanting to get up so they made her go to the ED. She felt much better after a breathing treatment and is feeling good today. She has some intermittent coughing now and some intermittent wheezing but feels well and wants to go home. she has no chest pain nausea or vomiting. no recent fevers. - Review of Systems Constitutional: No Fever, No Chills Eyes: No Symptoms Ears, Nose, & Throat: No Symptoms Respiratory: Cough, Short Of Breath, Wheezing Cardiac: No Chest Pain, No Edema, No Syncope Abdominal/Gastrointestinal: No Abdominal Pain, No Nausea, No Vomiting, No Diarrhea Genitourinary Symptoms: No Dysuria Musculoskeletal: No Back Pain, No Neck Pain Skin: No Rash Neurological: No Dizziness, No Focal Weakness, No Sensory Changes Psychological: No Symptoms Endocrine: No Symptoms Hematologic/Lymphatic: No Symptoms Immunological/Allergic: No Symptoms Medications & Allergies Home Medications: Home Medication List Docusate Sodium 100 mg [Colace 100 MG] 300 mg PO DAILY 02/02/16 [History Confirmed 08/05/17] Hydrocodone Bit/Acetaminophen [Hydrocodon-Acetaminophn 10-325] 1 each PO Q4HPRN PRN 02/02/16 [History Confirmed 08/05/17] Metoprolol Tartrate 100 mg PO BID 02/02/16 [History Confirmed 08/05/17] Nortriptyline HCl [Pamelor] 75 mg PO HS 02/02/16 [History Confirmed 08/05/17] Promethazine HCl 50 mg PO Q6HPRN PRN 02/02/16 [History Confirmed 08/05/17] Omeprazole [Prilosec] 40 mg PO DAILY 08/29/16 [History Confirmed 08/05/17] Prednisone 20 mg [Deltasone 20 mg] 40 mg PO DAILY #10 tablet 08/06/17 [Rx] Allergies/Adverse Reactions: Allergies Allergy/AdvReac Type Severity Reaction Status Date / Time sumatriptan [From Imitrex] Allergy Verified 12/02/16 12:05 sumatriptan succinate Allergy Verified 12/02/16 12:05 [From Imitrex] naproxen [From Naprosyn] AdvReac Verified 12/02/16 12:05 - Past Medical History Past Medical History: Yes Neurological History: Other ENT History: No Pertinent History Cardiac History: Hypertension Respiratory History: Asthma, Other Endocrine Medical History: Hyperthyroidism Musculoskelatal History: No Pertinent History GI Medical History: No Pertinent History History: No Pertinent History Pyscho-Social History: No Pertinent History Reproductive Disorders: No Pertinent History Comment: Migraines, pinched nerve in back - Female History Are you now?: No - Past Surgical History Past Surgical History: Yes Cardiac History: No Pertinent History Respiratory Surgery: No Pertinent History GI Surgical History: No Pertinent History Musculskeletal Surgical Hx: No Pertinent History Female Surgical History: Section Other Surgical History: D/C, Dermoid cyst removed from head - Social History Smoking Status: Current every day smoker How long have you smoked: 30 Exposure to second hand smoke: Yes Alcohol: Rarely Drug Use: none Significant Family History: no pertinent family hx - Physical Exam Vital Signs: Vital Signs - 24 hr Temp Pulse Resp BP Pulse Ox 08/06/17 08:00 98.5 F 67 18 122/71 95 08/06/17 04:44 98.1 F 71 18 134/65 96 08/06/17 04:00 20 08/06/17 02:28 67 20 95 08/06/17 00:00 18 08/05/17 23:56 98.3 F 63 19 134/62 92 L 08/05/17 20:40 111 H 19 94 L 08/05/17 20:15 97.8 F 104 H 26 H 156/71 96 08/05/17 20:00 26 H 08/05/17 17:03 98.4 F 102 H 18 143/67 95 08/05/17 16:00 102 H 18 95 08/05/17 14:23 98.4 F 103 H 20 143/67 95 08/05/17 13:57 106 H 24 165/80 95 08/05/17 13:47 98 08/05/17 13:16 116 H 20 163/74 94 L 12/24/17 12:07 112 H 20 142/74 93 L 08/05/17 11:43 91 H 26 H 96 08/05/17 11:00 94 H 24 162/79 95 08/05/17 10:58 93 H 22 155/77 98 08/05/17 10:20 99 H 28 H 98 08/05/17 10:03 108 H 28 H 184/89 100 Oxygen-Last 24 hours O2 Percentage 100% O2 Percentage 100% General Appearance: no apparent distress, alert Neurologic Exam: alert, oriented x 3, cooperative, normal mood/affect, nml cerebellar function, nml station & gait, sensation nml, No motor deficits Eye Exam: PERRL/EOMI, eyes nml inspection Ears, Nose, Throat Exam: normal ENT inspection, TMs normal, pharynx normal, moist mucous membranes Neck Exam: normal inspection, non-tender, supple, full range of motion Respiratory Exam: lungs clear, rhonchi (minimal bilaterally and faint bibasilar fine rale), No respiratory distress Cardiovascular Exam: regular rate/rhythm, normal heart sounds, normal peripheral pulses Gastrointestinal/Abdomen Exam: soft, normal bowel sounds, No tenderness, No mass Back Exam: normal inspection, normal range of motion, No CVA tenderness, No vertebral tenderness Extremity Exam: normal inspection, normal range of motion, pelvis stable Skin Exam: normal color, warm, dry, No rash Lymphatic Exam: No adenopathy Results - Labs Lab/Micro Results: Accuchecks Date 08/06/17 Time 07:30 Accucheck Value: 167 Lab Results-Last 24 Hours 08/06/17 08/06/17 08/06/17 Range/Units 05:22 05:22 05:30 WBC 6.3 (4.0-10.5) K/mm3 RBC 4.48 (4.1-5.4) M/mm3 Hgb 11.9 L (12.0-16.0) gm/dl Hct 37.4 (35-47) % MCV 83.5 (78-100) fl MCH 26.5 (26-32) pg MCHC 31.8 L (32-36) g/dl RDW 14.0 (11.5-14.0) % Plt Count 217 (150-450) K/mm3 MPV 10.9 H (6-9.5) fl Gran % 83.5 H (36.0-66.0) % Lymphocytes % 11.8 L (24.0-44.0) % Monocytes % 4.7 (0.0-12.0) % Eosinophils % 0.0 (0.00-5.0) % Basophils % 0.0 (0.0-0.4) % Basophils # 0 (0-0.4) Sodium 141 (136-145) mEq/L Potassium 3.8 (3.5-5.1) mEq/L Chloride 110 H (98-107) mEq/L Carbon Dioxide 24.5 (21-32) mEq/L Anion Gap 10.2 (5-15) MEQ/L BUN 12 (9-20) mg/dL Creatinine 0.67 (0.55-1.30) mg/dl Estimated GFR > 60 ML/MIN Glucose 163 H (70-110) MG/DL Hemoglobin A1c 6.1 (4.5-6.2) Calcium 8.8 (8.5-10.1) mg/dL Total Bilirubin 0.10 L (0.2-1.0) mg/dL AST 12 L (15-37) U/L ALT 16 (12-78) U/L Alkaline Phosphatase 85 (46-116) U/L Serum Total Protein 6.3 L (6.4-8.2) gm/dL Albumin 3.0 L (3.4-5.0) g/dL Accuchecks Date 08/06/17 Time 07:30 Accucheck Value: 167 - Other Procedures and Tests Respiratory Therapy 08/05/17 17:49 Respiratory Nebulizer PRN Assessment/Plan (1) COPD exacerbation Status: Acute Assessment & Plan: she has been on room air all night and doing well breathing well she has an inhaler at home she is going to live wit her sister now where they have power while she awaits application for the housing authority to try to get a better unit there she was given prednisone this am and a dose of rocephin and will resume prednisone taper and abx tomorrow Code(s): J44.1 - CHRONIC OBSTRUCTIVE PULMONARY DISEASE W (ACUTE) EXACERBATION
--- NOTE | 2017-08-06 09:52 | PCM.DCORD ---
- Discharge Discharge Date: 08/06/17 Disposition: Home, Self-Care Condition: Fair Prescriptions: New Prednisone 20 mg [Deltasone 20 mg] 40 mg PO DAILY #10 tablet Continue Hydrocodone Bit/Acetaminophen [Hydrocodon-Acetaminophn 10-325] 1 each PO Q4HPRN PRN PRN Reason: Pain Promethazine HCl 50 mg PO Q6HPRN PRN PRN Reason: Nausea Nortriptyline HCl [Pamelor] 75 mg PO HS Docusate Sodium 100 mg [Colace 100 MG] 300 mg PO DAILY Metoprolol Tartrate 100 mg PO BID Omeprazole [Prilosec] 40 mg PO DAILY Follow up with: GEOVANNA ZAPATA [Primary Care Provider] -
[2017-08-06] MEDS ORDERED: NON-FORMULARY ITEM (Omeprazole [Prilosec] 40 MG) PO SCH (10:00)
[2017-08-06] MEDS ORDERED: DELTASONE 20 MG PO ONE (10:00)
[2017-08-06] MEDS ORDERED: ROCEPHIN 1 Gm-D5w 50 ml Bag** 1 G/50 ML IVPB IV SCH (10:00)
[2017-08-06] MEDS ORDERED: FLUCELVAX QUAD 2017-2018 SYR IM ONE (10:00)
[2017-08-06] MEDS ORDERED: Protonix 40MG Tablet PO SCH (10:00)
[2017-08-06] MEDS ORDERED: Colace 100 MG PO SCH (10:00)
[2017-08-06] MEDS: Zithromax 500 MG/ 250 ML NaCl Premix 500 MG/250 ML IVPB IV SCH (10:10)
== END 2017-08-06 12:05 | disposition home or self-care (01) ==
LOC: ED 09:00 → MED SURG 14:10
PROVIDERS: ADMIT Family Medicine; ATTEND Family Medicine
DX: J44.1 Chronic obstructive pulmonary disease with (acute) exacerbation (principal)
CPT/HCPCS: 36000; 36415; 71010; 71260; 80053; 83036; 83880; 84484; 85025; 85379; 85610; 85730; 93005; 93041; 94640; 94760; 96360; 96361; 96365; 96366; 96374; 96375; 99285; G0008; G0378; J0456; J0696; J1650; J2060; J2930; Q9967; 90682; A9270-GY

== ENCOUNTER 2017-08-07 10:30 | Emergency (ER) | payer OTHER ==
[2017-08-07] MEDS ORDERED: Ativan 1 MG PO ONE (10:34)
[2017-08-07] MEDS ORDERED: Pepcid 20 MG VIAL IV ONE ×2 (10:34→10:50)
[2017-08-07] MEDS ORDERED: solu-MEDROL 125 MG IV ONE (10:34)
[2017-08-07] MEDS ORDERED: DUONEB 0.5-3 MG/3 ml Neb IH ONE ×2 (10:34→11:02)
--- NOTE | 2017-08-07 10:44 | ERPHSYRPT ---
- History of Present Illness Time Seen by Provider: 08/07/17 10:34 Historian: patient, EMS, old records Exam Limitations: no limitations Physician History: patient released from Hospital[facility]ester[facility] for COPD exacerbation; no fever until released; productive cough; chills; left sided sharp CP with coughing and deep breathing; no trauma; no leg pains; no pain at rest; no hx dvt; quit smoking while in hospital;no hemoptosis; no palpatations Timing/Duration: today, hour(s) (4), sudden, improved Activities at Onset: emotional stress, rest Quality: sharpness (left when coughs or deep breaths), stabbing Location: other (left mid anterior) Chest Pain Radiation: no radiation Severity of Pain-Max: severe (with cough or deep breathe) Severity of Pain-Current: moderate Modifying Factors: Improves With: breathing, coughing, palpation Associated Symptoms: shortness of breath, cough, hurts to breathe, fever, dizziness, edema Prior Chest Pain/Cardiac Workup: no prior chest pain Aspirin Treatment Today: 81 mg x 4, provided by EMS Allergies/Adverse Reactions: sumatriptan [From Imitrex] Allergy (Verified 08/07/17 10:34) sumatriptan succinate [From Imitrex] Allergy (Verified 08/07/17 10:34) naproxen [From Naprosyn] Adverse Reaction (Verified 08/07/17 10:34) Home Medications: Docusate Sodium 100 mg [Colace 100 MG] 300 mg PO DAILY 02/02/16 [History] Hydrocodone Bit/Acetaminophen [Hydrocodon-Acetaminophn 10-325] 1 each PO Q4HPRN PRN 02/02/16 [History] Metoprolol Tartrate 100 mg PO BID 02/02/16 [History] Nortriptyline HCl [Pamelor] 75 mg PO HS 02/02/16 [History] Promethazine HCl 50 mg PO Q6HPRN PRN 02/02/16 [History] Omeprazole [Prilosec] 40 mg PO DAILY 08/29/16 [History] Albuterol 2.5 mg/0.5 ml [PROVENTIL Solution 2.5 MG/0.5 ML] 2.5 mg IH UD 12 /26/17 [History] Hx Tetanus, Diphtheria Vaccination/Date Given: Yes Hx Influenza Vaccination/Date Given: No Hx Pneumococcal Vaccination/Date Given: No - Review of Systems Constitutional: Fever, Chills Eyes: No Symptoms Ears, Nose, & Throat: No Symptoms Respiratory: Cough, Wheezing, No Dyspnea Cardiac: Chest Pain, Edema, No Palpitations, No Syncope, No PND Abdominal/Gastrointestinal: No Abdominal Pain, No Nausea, No Vomiting, No Diarrhea Genitourinary Symptoms: No Symptoms Musculoskeletal: No Symptoms Skin: No Symptoms Neurological: Dizziness, No Paralysis, No Seizure, No Vertigo Psychological: Anxiety, No Alcohol Abuse, No Drug Abuse, No Suicidal Ideations Endocrine: No Symptoms Hematologic/Lymphatic: No Symptoms Immunological/Allergic: No Symptoms - Past Medical History Pertinent Past Medical History: Yes Neurological History: Other ENT History: No Pertinent History Cardiac History: Hypertension Respiratory History: Asthma, COPD, Other Endocrine Medical History: Hyperthyroidism Musculoskeletal History: No Pertinent History GI Medical History: No Pertinent History History: No Pertinent History Psycho-Social History: No Pertinent History Female Reproductive Disorders: No Pertinent History Other Medical History: Migraines, pinched nerve in back - Past Surgical History Past Surgical History: Yes Cardiac: No Pertinent History Respiratory: No Pertinent History Gastrointestinal: No Pertinent History Musculoskeletal: No Pertinent History Female Surgical History: Section Other Surgical History: D/C, Dermoid cyst removed from head - Social History Smoking Status: Current every day smoker How long have you smoked: 30 Exposure to second hand smoke: Yes Alcohol Use: Socially Drug Use: none Patient Lives Alone: No Significant Family History: no pertinent family hx - Female History Hx Now: No - Nursing Vital Signs Nursing Vital Signs: Initial Vital Signs Pulse Rate 67 08/07/17 10:37 Respiratory Rate 11 L 08/07/17 10:37 O2 Sat by Pulse Oximetry 100 08/07/17 10:37 Pain Scale Pain Intensity 3 - Physical Exam General Appearance: moderate distress, alert, anxiety, thin Eye Exam: PERRL/EOMI, eyes nml inspection, No photophobia Ears, Nose, Throat Exam: normal ENT inspection, TMs normal, pharynx normal, moist mucous membranes Neck Exam: normal inspection, non-tender, supple, full range of motion, No meningismus, No carotid bruit, No JVD, No subcutaneous emphysema Respiratory Exam: normal breath sounds (except left mid anterior), chest tenderness (localized small area left mid anbterior), lungs clear, respiratory distress (mild tachypnea), airway intact, wheezing (left mid anterior), pleural rub (let mid anterior), No prolonged expirations, No rhonchi, No stridor Cardiovascular Exam: regular rate/rhythm, normal heart sounds, normal peripheral pulses, capillary refill <2 sec, No murmur, No friction rub Gastrointestinal/Abdomen Exam: soft, normal bowel sounds, No tenderness, No guarding, No pulsatile mass, No rebound, No organomegaly Pelvic Exam: deferred Rectal Exam: deferred Back Exam: normal inspection, normal range of motion, No CVA tenderness, No vertebral tenderness Extremity Exam: normal inspection, normal range of motion, pedal edema (trace), No oswaldo's sign Neurologic Exam: alert, oriented x 3, cooperative, ticker maintainer II-XII nml as tested, nml cerebellar function, nml station & gait, sensation nml, No normal mood/ affect (anxious mild hyperventilation) Skin Exam: normal color, warm, dry, No rash, No petechiae SpO2 Interpretation: normal SpO2: 96 Oxygen Delivery: Room Air - Course Nursing assessment & vital signs reviewed: Yes EKG Interpreted by Me: RATE (66), Sinus Rhythm, NORMAL AXIS, NORMAL INTERVALS, NORMAL QRS, Non-specific ST Changes (poor R wave progression V1-V3) Rhythm Strip: Rate (68), Normal Sinus Rhythm - Radiology Exams Chest X-ray Interpretation: Reviewed by me, Teleradiologist Report, Negative (no change form 08/05/17) Ordered Tests: Active Orders 24 hr Category Date Time Status Process Control Engineer STAT Care 08/07/17 10:35 Active EKG-ER Only STAT Care 08/07/17 10:34 Active IV Insertion STAT Care 08/07/17 10:34 Active Pulse Oximetry (ED) STAT Care 08/07/17 10:34 Active CHEST 1 VIEW (PORTABLE) Stat Exams 08/07/17 10:35 Completed BLOOD CULTURE Stat Lab 08/07/17 10:56 Received CBC W DIFF Stat Lab 08/07/17 10:45 Completed CMP Stat Lab 08/07/17 10:45 Completed D-DIMER QUANTITATION Stat Lab 08/07/17 10:45 Completed Lactic Acid Stat Lab 08/07/17 10:55 Results MAGNESIUM Stat Lab 08/07/17 10:45 Completed NT PRO BNP Stat Lab 08/07/17 10:45 Completed PROTIME WITH INR Stat Lab 08/07/17 10:45 Completed Peak Expiratory Flow Rate ONCE RT 08/07/17 10:34 Active Respiratory Nebulizer STAT RT 08/07/17 10:37 Active Medication Summary Generic Name Dose Route Start Last Admin Trade Name Freq PRN Reason Stop Dose Admin Sodium Chloride 1,000 mls @ 100 mls/hr 08/07/17 10:45 08/07/17 10:54 Sodium Chloride 0.9% 1000 Ml IV 09/06/17 10:44 100 mls/hr .Q10H GILMER Administration Magnesium Sulfate/Dextrose 100 mls @ 200 mls/hr 08/07/17 12:23 Magnesium 1 Gm / 100 Ml D5w IV 08/07/17 12:52 STAT ONE Discontinued Medications Generic Name Dose Route Start Last Admin Trade Name Freq PRN Reason Stop Dose Admin Albuterol/Ipratropium 3 ml 08/07/17 10:34 08/07/17 11:06 Duoneb 0.5-3 Mg/3 Ml Neb IH 08/07/17 10:35 3 ml STAT ONE Administration Albuterol/Ipratropium Confirm 08/07/17 11:02 Duoneb 0.5-3 Mg/3 Ml Neb Administered 08/07/17 11:03 Dose 3 ml IH .STK-MED ONE Famotidine 20 mg 08/07/17 10:34 08/07/17 10:55 Pepcid 20 Mg Vial IV 08/07/17 10:35 20 mg STAT ONE Administration Famotidine Confirm 08/07/17 10:50 Pepcid 20 Mg Vial Administered 08/07/17 10:51 Dose 20 mg IV .STK-MED ONE Ceftriaxone Sodium/Dextrose 1 g in 50 mls @ 100 mls/hr 08/07/17 10:50 11:06 Rocephin 1 Gm-D5w 50 Ml Bag IV 08/07/17 11:19 100 mls/hr STAT STA Administration Ceftriaxone Sodium/Dextrose Confirm 08/07/17 11:03 Rocephin 1 Gm-D5w 50 Ml Bag Administered 08/07/17 11:04 Dose 1 g in 50 mls @ ud IV .STK-MED ONE Ibuprofen 600 mg 08/07/17 11:30 08/07/17 11:44 Motrin 600 Mg PO 08/07/17 11:31 600 mg STAT ONE Administration Ibuprofen Confirm 08/07/17 11:43 Motrin 600 Mg Administered 08/07/17 11:44 Dose 600 mg .ROUTE .STK-MED ONE Lorazepam 1 mg 08/07/17 10:34 08/07/17 11:00 Ativan 1 Mg PO 08/07/17 10:35 1 mg STAT ONE Administration Lorazepam Confirm 08/07/17 10:50 Ativan 2 Mg/1 Ml Vial Administered 08/07/17 10:51 Dose 2 mg .ROUTE .STK-MED ONE Lorazepam Confirm 08/07/17 10:59 Ativan 1 Mg Administered 08/07/17 11:00 Dose 1 mg .ROUTE .STK-MED ONE Methylprednisolone Sodium Succinate 125 mg 08/07/17 10:34 08/07/17 10:55 Solu-Medrol 125 Mg IV 08/07/17 10:35 125 mg STAT ONE Administration Methylprednisolone Sodium Succinate Confirm 08/07/17 10:50 Solu-Medrol 125 Mg Administered 08/07/17 10:51 Dose 125 mg .ROUTE .STK-MED ONE Potassium Chloride 40 meq 08/07/17 12:24 Potassium Chl 40 Meq/30 Ml Oral Solution PO 08/07/17 12:25 DAILY STA Lab/Rad Data: Laboratory Result Diagrams 08/07/17 10:45 08/07/17 10:45 Laboratory Results 08/07/17 08/07/17 08/07/17 Range/Units 10:55 10:45 10:45 WBC (4.0-10.5) K/mm3 RBC (4.1-5.4) M/mm3 Hgb (12.0-16.0) gm/dl Hct (35-47) % MCV (78-100) fl MCH (26-32) pg MCHC (32-36) g/dl RDW (11.5-14.0) % Plt Count (150-450) K/mm3 MPV (6-9.5) fl Gran % (36.0-66.0) % Lymphocytes % (24.0-44.0) % Monocytes % (0.0-12.0) % Eosinophils % (0.00-5.0) % Basophils % (0.0-0.4) % Basophils # (0-0.4) INR 1.12 (0.8-3.0) D-Dimer 796.28 H* (0-500) ng/mL Sodium (136-145) mEq/L Potassium (3.5-5.1) mEq/L Chloride (98-107) mEq/L Carbon Dioxide (21-32) mEq/L Anion Gap (5-15) MEQ/L BUN (9-20) mg/dL Creatinine (0.55-1.30) mg/dl Estimated GFR ML/MIN Glucose (70-110) MG/DL Lactic Acid 2.6 H (0.4-2.0) Calcium (8.5-10.1) mg/dL Magnesium (1.8-2.4) mg/dL Total Bilirubin (0.2-1.0) mg/dL AST (15-37) U/L ALT (12-78) U/L Alkaline Phosphatase (46-116) U/L NT-Pro-B Natriuret Pep (0-125) pg/ml Serum Total Protein (6.4-8.2) gm/dL Albumin (3.4-5.0) g/dL Influenza Type A Ag POSITIVE (NEGATIVE) Influenza Type B Ag NEGATIVE (NEGATIVE) RSV (PCR) NEGATIVE (Negative) 08/07/17 08/07/17 Range/Units 10:45 10:45 WBC 7.3 (4.0-10.5) K/mm3 RBC 4.31 (4.1-5.4) M/mm3 Hgb 11.7 L (12.0-16.0) gm/dl Hct 35.9 (35-47) % MCV 83.3 (78-100) fl MCH 27.1 (26-32) pg MCHC 32.6 (32-36) g/dl RDW 14.3 H (11.5-14.0) % Plt Count 177 (150-450) K/mm3 MPV 10.4 H (6-9.5) fl Gran % 81.9 H (36.0-66.0) % Lymphocytes % 9.0 L (24.0-44.0) % Monocytes % 9.1 (0.0-12.0) % Eosinophils % 0.0 (0.00-5.0) % Basophils % 0.0 (0.0-0.4) % Basophils # 0 (0-0.4) INR (0.8-3.0) D-Dimer (0-500) ng/mL Sodium 140 (136-145) mEq/L Potassium 2.9 L* (3.5-5.1) mEq/L Chloride 103 (98-107) mEq/L Carbon Dioxide 24.6 (21-32) mEq/L Anion Gap 13.8 (5-15) MEQ/L BUN 12 (9-20) mg/dL Creatinine 0.84 (0.55-1.30) mg/dl Estimated GFR > 60 ML/MIN Glucose 99 (70-110) MG/DL Lactic Acid (0.4-2.0) Calcium 8.9 (8.5-10.1) mg/dL Magnesium 1.6 L (1.8-2.4) mg/dL Total Bilirubin 0.20 (0.2-1.0) mg/dL AST 15 (15-37) U/L ALT 13 (12-78) U/L Alkaline Phosphatase 82 (46-116) U/L NT-Pro-B Natriuret Pep 2072 H (0-125) pg/ml Serum Total Protein 6.2 L (6.4-8.2) gm/dL Albumin 3.1 L (3.4-5.0) g/dL Influenza Type A Ag (NEGATIVE) Influenza Type B Ag (NEGATIVE) RSV (PCR) (Negative) reviewed - Progress Progress: improved (after meds), re-examined (after meds and treatment) Air Movement: fair Progress Note: 08/07/17 11:03 rechecked and not as anxious; pain resolving; tachypnea resolved; sats good; EKG ok; CXR a nd labs pending; getting a resp tx with duonebs 08/07/17 11:32 CXR unchanged from 08/05/17; D Dimer elevated at 1232 and CTA of chest neg 08/05 ; D Dimer elevated today at 762 - improved from 08/05/17 and CTA negative and clinically neg; CBC ok; LActic acid 2.6; recheck and improved post Resp treatment; peak flow 130 pre and 150 post; will monitor and rechec; will give motrin as patient states tolerates it ok 08/07/17 12:14 Influenza A pos; B neg; low K+ 2.9; low Mg++ 1.6; pBNP up 2071; will consult with Dr Zpaata for disposition 08/07/17 12:26 rechecked and consulted with patient, family and Dr Dmitriy Zapata and patient elected to go home with her sister; will give K+ and MG++ here and rxs for same and Tamiflu as well. Blood Culture(s) Obtained: Yes Antibiotics given: Yes Discussed with Dr.: Daniella (consulted for disposition) Counseled pt/family regarding: lab results, diagnosis, need for follow-up, rad results, smoking cessation - Departure Time of Disposition: 12:45 Departure Disposition: Home Clinical Impression: COPD exacerbation, Influenza A, Hypokalemia, Hypomagnesemia, Pleuritic chest pain Condition: Stable Critical Care Time: No Referrals: GEOVANNA ZAPATA [Primary Care Provider] - Instructions: Chest Pain Additional Instructions: rest take meds; get Rxs filled; stay at sisters follow up LMD recheckFollow-up with family doctor as directed. Call for appointment. Return if any problems. If you smoke please stop. Call or follow up with your family doctor for assistance if you need it to stop. Please wear your seatbelt when driving. Have a nice day. Thank you for allowing us to participate in your care today. :o) Dr Denis Membreno Prescriptions: Nizatidine [Axid] 150 mg PO BID #30 capsule Oseltamivir 75 mg [Tamiflu 75MG Capsule] 75 mg PO BID 5 Days #10 cap Potassium Bicarbonate/Cit AC [Potassium 25 Meq Tablet Eff] 25 meq PO BID 15 Days #30 tablet.eff
[2017-08-07] MEDS ORDERED: Sodium Chloride 0.9% 1000 ML 1,000 ML IV SCH (10:45)
[2017-08-07] MEDS ORDERED: Ativan 2 MG/1 ML VIAL ONE (10:50)
[2017-08-07] MEDS ORDERED: Sodium Chloride 0.9% 1000 ML 1,000 ML ONE (10:50)
[2017-08-07] MEDS ORDERED: solu-MEDROL 125 MG ONE (10:50)
[2017-08-07] MEDS ORDERED: ROCEPHIN 1 Gm-D5w 50 ml Bag** 1 G/50 ML IVPB IV STA (10:50)
[2017-08-07] MEDS ORDERED: Ativan 1 MG ONE (10:59)
[2017-08-07 11:00] LABS: Granulocytes % 81.9 % (36.0-66.0); Mean Cell Volume 83.3 fl (78-100); Mean Corpuscular Hemoglobin 27.1 pg (26-32); Mean Platelet Volume 10.4 fl (6-9.5); Monocytes % 9.1 % (0.0-12.0); Platelet Count 177 K/mm3 (150-450); Red Blood Count 4.31 M/mm3 (4.1-5.4); Red Cell Distribution Width 14.3 % (11.5-14.0); White Blood Count 7.3 K/mm3 (4.0-10.5)
[2017-08-07 11:00] LABS: Lactic Acid 2.6 (0.4-2.0)
[2017-08-07] MEDS ORDERED: ROCEPHIN 1 Gm-D5w 50 ml Bag** 1 G/50 ML IVPB IV ONE (11:03)
[2017-08-07 11:18] LABS: INR 1.12 (0.8-3.0); PROTIME 12.5 SECONDS (9.95-12.35)
--- NOTE | 2017-08-07 11:21 | XRAY ---
Indication: Chest pain short of breath. Comparison: August 05, 2017. Portable chest remains clear again with a few incidental calcified granulomas. Heart is not enlarged. No new/acute findings. Impression: Stable nonacute chest.
[2017-08-07] MEDS ORDERED: MOTRIN 600 MG PO ONE (11:30)
[2017-08-07 11:33] LABS: ALBUMIN 3.1 g/dL (3.4-5.0); ALKALINE PHOSPHATASE 82 U/L (46-116); ANION GAP 13.8 MEQ/L (5-15); BLOOD UREA NITROGEN 12 mg/dL (9-20); CHLORIDE 103 mEq/L (98-107); Carbon Dioxide 24.6 mEq/L (21-32); Glucose 99 MG/DL (70-110); MAGNESIUM 1.6 mg/dL (1.8-2.4); SGOT/AST 15 U/L (15-37); SGPT/ALT 13 U/L (12-78); SODIUM 140 mEq/L (136-145); Total Protein 6.2 gm/dL (6.4-8.2)
[2017-08-07 11:39] LABS: Potassium 2.9 mEq/L (3.5-5.1)
[2017-08-07] MEDS ORDERED: MOTRIN 600 MG ONE (11:43)
[2017-08-07] MEDS ORDERED: Magnesium 1 Gm / 100 Ml D5W*** 100 ML IV ONE ×2 (12:23→12:30)
[2017-08-07] MEDS ORDERED: POTASSIUM CHL 40 MEQ/30 ML ORAL SOLUTION PO STA (12:24)
[2017-08-07] MEDS ORDERED: Klor Con 10 MEQ PO ONE ×2 (12:32→12:34)
[2017-08-07 12:42] VITALS: BP 153/77; O2SAT 93
[2017-08-07 13:00] VITALS: PULSE 20
== END 2017-08-07 13:38 | disposition home or self-care (01) ==
LOC: ED 10:30
DX: J44.1 Chronic obstructive pulmonary disease with (acute) exacerbation (principal); J11.1 Influenza due to unidentified influenza virus with other respiratory manifestations; E87.6 Hypokalemia; E83.42 Hypomagnesemia; R07.81 Pleurodynia; R06.02 Shortness of breath; R50.9 Fever, unspecified; R42 Dizziness and giddiness; Z79.899 Other long term (current) drug therapy
CPT/HCPCS: 36415; 71010; 80053; 83605; 83735; 83880; 85025; 85379; 85610; 87040; 87631; 93005; 93041; 94150; 94640; 96360; 96365; 96366; 96374; 96375; 99284; J0696; J2060; J2930; J3475; A9270-GY

== ENCOUNTER 2017-12-05 13:56 | Emergency (ER) | payer OTHER, SELFPAY ==
[2017-12-05 14:08] VITALS: O2SAT 98
--- NOTE | 2017-12-05 14:29 | ERPHSYRPT ---
- History of Present Illness Time Seen by Provider: 12/05/17 14:15 Source: patient Exam Limitations: no limitations Patient Subjective Stated Complaint: Pt states "I have a leak in my kitchen and I guess the floor was soft and my left leg fell through the floor and when I hit the ground, I fell on my butt." Triage Nursing Assessment: Pt alert and oriented X 3, skin pwd Pt ambulates with a slight limp, no bruising or swelling noted to left leg, ankle, or foot. CSM X 4 Physician History: Pt states, her kitchen floor was wet, it broke, and her left leg slipped and fell through it. She injured her left lower leg, hip and lower back. She denies head injury, LOC, other injury or complaints. Timing/Duration: hour(s) (1) Occured at: home Context: fall Quality: sharpness Hip Pain Location: hip (L) Severity of Pain-Max: moderate Severity of Pain-Current: moderate Modifying Factors: Improves With: movement Symptoms prior to fall: none Associated Symptoms: denies symptoms Allergies/Adverse Reactions: sumatriptan [From Imitrex] Allergy (Verified 08/07/17 10:34) sumatriptan succinate [From Imitrex] Allergy (Verified 08/07/17 10:34) naproxen [From Naprosyn] Adverse Reaction (Verified 08/07/17 10:34) Home Medications: Docusate Sodium 100 mg [Colace 100 MG] 300 mg PO DAILY 02/02/16 [History] Hydrocodone Bit/Acetaminophen [Hydrocodon-Acetaminophn 10-325] 1 each PO Q4HPRN PRN 02/02/16 [History] Metoprolol Tartrate 100 mg PO BID 02/02/16 [History] Nortriptyline HCl [Pamelor] 75 mg PO HS 02/02/16 [History] Promethazine HCl 50 mg PO Q6HPRN PRN 02/02/16 [History] Omeprazole [Prilosec] 40 mg PO DAILY 08/29/16 [History] Albuterol 2.5 mg/0.5 ml [PROVENTIL Solution 2.5 MG/0.5 ML] 2.5 mg IH UD [History] Hx Tetanus, Diphtheria Vaccination/Date Given: No Hx Influenza Vaccination/Date Given: No Hx Pneumococcal Vaccination/Date Given: No Immunizations Up to Date: Yes - Review of Systems Constitutional: No Symptoms Musculoskeletal: Back Pain, Other (left hip and lower leg pain.) Skin: No Symptoms All Other Systems: Reviewed and Negative - Past Medical History Pertinent Past Medical History: Yes Neurological History: Other ENT History: No Pertinent History Cardiac History: Hypertension Respiratory History: Asthma, COPD, Other Endocrine Medical History: Hyperthyroidism Musculoskeletal History: No Pertinent History GI Medical History: No Pertinent History History: No Pertinent History Psycho-Social History: No Pertinent History Female Reproductive Disorders: No Pertinent History Other Medical History: Migraines, pinched nerve in back - Past Surgical History Past Surgical History: Yes Cardiac: No Pertinent History Respiratory: No Pertinent History Gastrointestinal: No Pertinent History Musculoskeletal: No Pertinent History Female Surgical History: Section Other Surgical History: D/C, Dermoid cyst removed from head - Social History Smoking Status: Former smoker How long have you smoked: 30 Exposure to second hand smoke: Yes Alcohol Use: Socially Drug Use: none Patient Lives Alone: No Significant Family History: no pertinent family hx - Female History Hx Now: No - Nursing Vital Signs Nursing Vital Signs: Initial Vital Signs Temperature 98.8 F 12/05/17 14:03 Pulse Rate 77 12/05/17 14:03 Respiratory Rate 18 12/05/17 14:03 Blood Pressure 126/79 12/05/17 14:03 O2 Sat by Pulse Oximetry 98 12/05/17 14:03 Pain Scale Pain Intensity 5 - Physical Exam General Appearance: no apparent distress Eye Exam: PERRL/EOMI, eyes nml inspection Ears, Nose, Throat Exam: normal ENT inspection Neck Exam: normal inspection, non-tender, supple, full range of motion Respiratory Exam: normal breath sounds, lungs clear, airway intact, No chest tenderness Cardiovascular Exam: regular rate/rhythm, normal heart sounds, normal peripheral pulses, No murmur Gastrointestinal Exam: soft, normal bowel sounds, No tenderness, No ecchymosis Back Exam: normal inspection, other (diffuse left paralumbar, muscular tenderness, no bruises, swelling,or muscle spasms.), No muscle spasm Extremity Exam: normal inspection, normal range of motion, pelvis stable, tenderness (left anterior hip[ and lower leg tender, no swlling or bruising, good ROM, normal distal pulses and sensation.), No calf tenderness, No deformities Peripheral Pulses: dorsalis-pedis (R): 3+, dorsalis-pedis (L): 3+ Neurologic Exam: alert, oriented x 3, normal mood/affect Skin Exam: normal color, warm, dry SpO2 Interpretation: normal SpO2: 98 Oxygen Delivery: Room Air - Course Nursing assessment & vital signs reviewed: Yes - Radiology Exams L-Spine X-ray Interpretation: Reviewed by me, No Fracture, Other (DJD) Hip X-ray Interpretation: Reviewed by me, Negative Lower Leg X-ray Interpretation: Reviewed by me, Negative Ordered Tests: Active Orders 24 hr Category Date Time Status Clean Catch Urine Specimen STAT Care 12/05/17 14:46 Active HIP UNI (2V) INCL PEL IF DONE Stat Exams 12/05/17 14:16 Completed LOWER LEG Stat Exams 12/05/17 14:16 Completed LUMBAR LIMITED (2 OR 3 VIEWS) Stat Exams 12/05/17 14:16 Completed UA W/RFX UR CULTURE Stat Lab 12/05/17 14:40 Completed Lab/Rad Data: Laboratory Results 12/05/17 Range/Units 14:40 Ur Collection Type CCMS Urine Color YELLOW (YELLOW) Urine Appearance CLEAR (CLEAR) Urine pH 5.0 (5-6) Ur Specific [place] 1.010 (1.005-1.025) Urine Protein NEGATIVE (Negative) Urine Ketones NEGATIVE (NEGATIVE) Urine Blood NEGATIVE (0-5) Dmitri/ul Urine Nitrite NEGATIVE (NEGATIVE) Urine Bilirubin NEGATIVE (NEGATIVE) Urine Urobilinogen NORMAL (0-1) mg/dL Ur Leukocyte Esterase NEGATIVE (NEGATIVE) Urine Culture Reflexed NO (NO) Urine Glucose NEGATIVE (NEGATIVE) mg/dL Specimen Received 12-05-17 1520 - Progress Progress: unchanged Progress Note: 12/05/17 15:35 I informed patient about X ray results, she understood, will be discharged in good condition to rest x 2-3 days, apply moist heat to her back as needed, return if severe pain, sudden leg weakness, numbness, or loss of bladder, bowel control. - Departure Time of Disposition: 15:36 Departure Disposition: Home Clinical Impression: Back contusion Qualifiers: Encounter type: initial encounter Laterality: unspecified laterality Qualified Code(s): S20.229A - Contusion of unspecified back wall of thorax, initial encounter Contusion of leg, left Qualifiers: Encounter type: initial encounter Qualified Code(s): S80.12XA - Contusion of left lower leg, initial encounter Condition: Stable Critical Care Time: No Referrals: GEOVANNA ZAPATA [Primary Care Provider] - Instructions: Contusion (DC), Lumbar Muscle Strain (DC) Additional Instructions: Rest x 2-3 days, apply moist heat to back, return if severe pain, sudden leg weakness, numbness, loss of bladder, bowel control! Follow up with your physician next week!
--- NOTE | 2017-12-05 14:48 | XRAY ---
Indication: Pain following fall. Comparison: None 2 views of the left hip demonstrates lumbar degenerative spondylosis reported separately. No other bony, articular, or soft tissue abnormalities.
--- NOTE | 2017-12-05 14:48 | XRAY ---
Indication: Pain following fall. Comparison: None 2 views of the left lower leg obtained. No bony, articular, or soft tissue abnormalities.
--- NOTE | 2017-12-05 14:51 | XRAY ---
Indication: Pain following fall. Comparison: August 29, 2012. 3 views of the lumbar spine demonstrates stable mild multilevel degenerative spondylosis, bilateral L5-S1 degenerative facet arthropathy, minimal dextroscoliosis centered at L1, and mild aortic calcifications. No new/acute findings.
[2017-12-05 15:25] LABS: Appearance CLEAR (CLEAR); Bilirubin NEGATIVE (NEGATIVE); Blood NEGATIVE Ery/ul (0-5); Glucose NEGATIVE (NEGATIVE); Ketones NEGATIVE (NEGATIVE); Leukocyte Esterase NEGATIVE (NEGATIVE); Nitrite NEGATIVE (NEGATIVE); Protein,Urine Dip NEGATIVE (Negative); Urobilinogen NORMAL mg/dL (0-1)
[2017-12-05 15:52] VITALS: BP 116/64; PULSE 70
== END 2017-12-05 15:52 | disposition home or self-care (01) ==
LOC: ED 13:56
DX: S30.0XXA Contusion of lower back and pelvis, initial encounter (principal); S80.12XA Contusion of left lower leg, initial encounter; M25.552 Pain in left hip; M79.662 Pain in left lower leg; W01.0XXA Fall on same level from slipping, tripping and stumbling without subsequent striking against object, initial encounter; Z79.899 Other long term (current) drug therapy
CPT/HCPCS: 72100; 73502; 73590; 81002; 99283; 99284

== ENCOUNTER 2018-02-25 08:41 | Day surgery (SDC) | payer OTHER ==
--- NOTE | 2018-02-25 08:19 | HP ---
DATE OF SURGERY: 02/25/2018 HISTORY OF PRESENT ILLNESS: The patient is a 62 year-old choking on food the past two to three month's upper esophagus. Heartburn bad. Prior gallbladder work up. No thinners according to the patient. PAST MEDICAL HISTORY: Chronic obstructive pulmonary disease, asthma, chronic back pain. PAST SURGICAL HISTORY: section x2 and tubal. MEDICATIONS: Includes metoprolol, nortriptyline, Prilosec, Phenergan, [place] PRN as well as potassium. ALLERGIES: IMITREX, NAPROSYN. FAMILY HISTORY: Heart disease, cancer, hypertension. SOCIAL HISTORY: She quit smoking in July. Denies alcohol abuse. REVIEW OF SYSTEMS: Twelve systems reviewed per admission assessment. No chest pain or palpitations other systems negative or noncontributory as above and per preadmission questionnaire. PHYSICAL EXAMINATION: GENERAL: No acute distress. HEENT: Sclerae nonicteric. NECK: No JVD. CHEST: Equal excursion, nonlabored breathing. CVS: Regular rate and rhythm. ABDOMEN: Soft. No peritoneal signs. EXTREMITIES: No significant edema. NEURO: Alert, moving extremities symmetrically. No gross motor deficits noted. IMPRESSION: Dysphagia. I feel the patient will benefit from EGD, possible biopsy, possible dilatation. Risks and benefits explained in detail including but not limited to bleeding or infection, risk of bowel injury or perforation possibly requiring open procedure, risk of ongoing morbidity, risk of missed or nondiagnosis or incomplete exam, possibly if dilatation performed may improve and may need to be done again down the road. She also understands the possibility that this could be more of a functional problem that dilatation may not help. She understands and agrees to the planned procedure and will proceed with EGD, possible biopsy, possible dilatation as an outpatient.
[~2018-02-25 08:41] MED LIST: Lactated Ringers 1,000 ML IV ONE; Lactated Ringers 1,000 ML IV SCH
[2018-02-25] MEDS ORDERED: DIPRIVAN 200 MG/20 ML IV ONE (08:42)
[2018-02-25 12:22] VITALS: O2SAT 96
[2018-02-25 12:31] VITALS: BP 134/78; PULSE 66
--- NOTE | 2018-02-26 07:50 | OP ---
SURGERY DATE/TIME: 02/25/2018 1054 PREOPERATIVE DIAGNOSES: 1) Dysphagia. 2) Epigastric burning. POSTOPERATIVE DIAGNOSES: 1) Mild gastritis. 2) Short segment possible early distal gastroesophagitis. 3) Proximal esophageal narrowing and spasm, symptomatic proximal esophageal narrowing and spasm. PROCEDURES: 1) EGD with cold biopsy of small bowel to evaluate for sprue. 2) Cold biopsy of the antrum to evaluate for Helicobacter pylori. 3) Cold biopsy of proximal stomach and area of inflammation. 4) Cold biopsy distal esophagus short segment of distal gastroesophagitis versus early Ching's path pending. 5) Proximal esophageal balloon dilatation (size 20 balloon dilator). SURGEON: Dr. Keyon Lee. ANESTHESIA: MAC. ESTIMATED BLOOD LOSS: Minimal. INDICATIONS: As noted above. Risks and benefits explained in detail and not limited to and consent obtained. DESCRIPTION OF PROCEDURE AND FINDINGS: The patient is taken to the operating room. MAC anesthesia introduced. After official time out and no disagreement with planned procedure, bite block positioned. Video gastroscope passed down the oropharynx. The proximal esophageal area had narrowing and spasm this is where she is having the symptoms. There was no obvious mass here to biopsy. No diverticulum was visible with endoscope but because of the narrowing, spasm and symptoms here it was felt to perform dilatation during the procedure. The scope was able to be just passed through this area with the gastroesophageal junction about 40 cm to the patent pylorus to the junction of the second and third portion of the duodenum. Given her upper abdominal burning cold biopsy taken of small bowel to evaluate for celiac sprue. The scope pulled back in the stomach. She had some minimal to mild gastritis. Cold biopsy taken to evaluate for Helicobacter pylori as well as cold biopsy of the proximal stomach where it was a little bit more inflamed. There was no obvious evidence of any other mucosal lesions. No masses. No ulcers or other mucosal lesions other than the gastritis. On retroflex there did not appear to be any evidence of significant hiatal hernia on endoscopic view. The scope is straightened. Gastroesophageal junction 40 cm. Short segment in question whether distal gastroesophagitis versus early Ching's. Cold biopsy taken in this area. Good hemostasis noted. The scope pulled back up to the proximal esophagus at the narrowed area. Again, no evidence of any mass or any other mucosal lesions to biopsy at this point. It was felt as she is having symptoms up here it was felt she would benefit from trial dilatation. The scope is then passed back down into the stomach. A 20 balloon catheter carefully inserted and pulled back up to the proximal esophageal narrowed area gradually inflated first stage 45 seconds, second stage 45 seconds, final stage 2 minutes. The patient was trying to swallowing the balloon. The balloon was then decompressed, pulled free and passed off. The scope more easily passed through this area. There did not appear to be any evidence of any full thickness issues secondary to dilatation. The scope is withdrawn. The patient tolerated the procedure well. Findings discussed with the family out in the waiting area. If this fails to resolve her problem she may need consideration of upper GI or barium swallow study or even consider using the larger harder dilators.
== END 2018-02-25 12:20 | disposition home or self-care (01) ==
LOC: SDC 08:41
PROVIDERS: ATTEND Surgery
DX: K29.70 Gastritis, unspecified, without bleeding (principal); K20.9 Esophagitis, unspecified; K22.2 Esophageal obstruction; K22.4 Dyskinesia of esophagus; J44.9 Chronic obstructive pulmonary disease, unspecified; J45.909 Unspecified asthma, uncomplicated; M54.9 Dorsalgia, unspecified; G89.29 Other chronic pain; F45.42 Pain disorder with related psychological factors; Z79.899 Other long term (current) drug therapy
CPT/HCPCS: 88305; C1726; J2704

== ENCOUNTER 2021-10-03 09:26 | Day surgery (SDC) | payer MEDICARE ==
--- NOTE | 2021-10-03 09:19 | HP ---
DATE OF SURGERY: 10/03/2021 HISTORY OF PRESENT ILLNESS: The patient is a 66-year-old with history of COVID back in March, had some bright red blood per rectum with some bowel movements. No prior colonoscopy. Family history of mother had some colon problems, question of cancer. She has history of some prolapsing hemorrhoid problems in the past. She failed conservative trial management in the past. Given rectal bleeding she is in need for colonoscopy and possible internal hemorrhoid banding pending operative findings. PAST MEDICAL HISTORY: Chronic obstructive pulmonary disease, reflux, hypertension, migraines, arthritis, glaucoma. PAST SURGICAL HISTORY: section x2. Cyst removed from the forehead in the past. She had endoscopy in the past. MEDICATIONS: Prilosec, metoprolol, Trelegy, albuterol inhaler. ALLERGIES: NAPROSYN. IMITREX. FAMILY HISTORY: Heart disease, cancer, hypertension. SOCIAL HISTORY: One pack per day smoker, occasional alcohol use. REVIEW OF SYSTEMS: Fourteen systems reviewed. No chest pain or palpitations. Other systems negative or noncontributory as above and per preadmission questionnaire. PHYSICAL EXAMINATION: GENERAL: No acute distress. HEENT: Sclerae nonicteric. NECK: No JVD. CHEST: Clear to auscultation. CVS: Regular rate and rhythm. ABDOMEN: Soft. No peritoneal signs. EXTREMITIES: No significant edema. NEURO: Alert, oriented, moving extremities symmetrically. RECTAL: Deferred timed to endoscopy exam. PSYCH: Appropriate mood and affect. IMPRESSION: Rectal bleeding, history of some prolapsing hemorrhoids in the past. She is in need of colonoscopy possible internal hemorrhoid banding depending on operative findings. General risk of bleeding or infection, risk of bowel injury or perforation possibly requiring open procedure, risk of missed or nondiagnosis or incomplete exam possibly requiring barium enema, general risk of anesthesia or sedation, risk of bowel prep. If hemorrhoid banding accomplished, risk of aches, pain or pressure, risk of sphincter irritability or spasm. Small risk of continence problem being transient or [facility]. General risk of progression of hemorrhoid disease possibly requiring other procedure and/or even excisional therapy down the road. Remote risk of major infection around the rectum possibly requiring major procedure or diversion as well as possibility that hemorrhoid disease might be severe enough to warrant hemorrhoid banding at the time of procedure. She understands and agrees to the planned procedure and will proceed with colonoscopy, possible internal hemorrhoid banding as an outpatient.
[2021-10-03] MEDS ORDERED: Lactated Ringers 1,000 ML IV ONE ×2 (09:48→11:58)
[2021-10-03] MEDS ORDERED: DIPRIVAN 200 MG/20 ML IV ONE ×3 (11:30→12:03)
[2021-10-03 14:38] VITALS: O2SAT 100
[2021-10-03 14:40] VITALS: BP 142/76; PULSE 53
--- NOTE | 2021-10-03 14:53 | OP ---
SURGERY DATE/TIME: 10/03/2021 1132 PREOPERATIVE DIAGNOSIS: History of rectal bleeding, question of history of hemorrhoids in the past. POSTOPERATIVE DIAGNOSES: 1) Large ulcerated rectal mass mid to lower rectum. 2) Multiple colon polyps PROCEDURES: 1) Colonoscopy to cecum. 2) Hot snare biopsy polypectomy cecal polyp. 3) Hot snare polypectomy ascending colon polyp x2. 4) Hot snare polypectomy transverse colon polyp x2. 5) Cold biopsy small early rectosigmoid colon polyp versus hyperplastic lesion. 6) Multiple cold biopsies rectal mass mid to lower rectum with ink spot tattooing of the distal margin. SURGEON: Dr. Keyon Lee. ANESTHESIA: MAC. ESTIMATED BLOOD LOSS: Minimal. INDICATIONS: As noted above. Risks and benefits explained in detail but not limited to and consent obtained. DESCRIPTION OF PROCEDURE AND FINDINGS: The patient is taken to the operating room. MAC anesthesia induced. After official time out and no disagreement with planned procedure, digital rectal exam revealed rectal mass at the tip of the finger. The scope was passed around through the ulcerated mass and around the transverse colon. Polyps removed with hot snare polypectomy with brief bursts of cautery in the transverse colon x2 and two more removed with hot snare polypectomy in the ascending colon, one was removed with hot snare biopsy polypectomy. There was a small cecal polyp removed with hot snare polypectomy. The scope was then carefully withdrawn. Prep overall was fair with some liquidy semi-solid stool limiting the exam for small lesions. The scope was then carefully withdrawn. Again, a couple of polyps removed with hot snare in the ascending colon and removed with hot biopsy polypectomy. Another polyp removed with hot snare polypectomy in transverse colon. Down in the rectosigmoid colon a small, early polyp versus hyperplastic lesion removed with hot biopsy forceps. Good hemostasis noted. Multiple cold biopsies taken of this ulcerated rectal mass seemed to be about 6 to 7 cm up from the anal verge. There was a little bit of hyperplastic lesion on the down side of it. Multiple cold biopsies of rectal mass accomplished and ink spot tattooing was injected submucosa in a couple different locations on the distal edge of the rectal mass. The scope is withdrawn. The patient tolerated the procedure well. There were no immediate complications. The findings were discussed with a family member over the phone. I will see her back in the office for CA level.
== END 2021-10-03 13:30 | disposition home or self-care (01) ==
LOC: SDC 09:26
PROVIDERS: ATTEND Surgery
DX: Z09 Encounter for follow-up examination after completed treatment for conditions other than malignant neoplasm (principal); C20 Malignant neoplasm of rectum; K62.6 Ulcer of anus and rectum; D12.2 Benign neoplasm of ascending colon; D12.0 Benign neoplasm of cecum; D12.3 Benign neoplasm of transverse colon
CPT/HCPCS: 36415; 82378; 88305; J2704

== ENCOUNTER 2022-01-30 10:33 | Day surgery (SDC) | payer MEDICARE ==
--- NOTE | 2022-01-30 09:22 | HP ---
PROCEDURE DATE: 01/30/2022 HISTORY OF PRESENT ILLNESS: The patient is a 66 y/o who has had rectal cancer, 20 rounds of chemo and radiation, now needs reevaluation prior to planning surgical intervention. PAST MEDICAL HISTORY: Chronic obstructive pulmonary disease, reflux, hypertension as well as rectal cancer. CURRENT MEDICATIONS: Prochlorperazine, AZO cranberry, aspirin, Excedrin, Trelegy Ellipta, metoprolol, hydrocodone, omeprazole. ALLERGIES: NAPROSYN AND SUMATRIPTAN. PAST SURGICAL HISTORY: She has had . She had dermoid cyst removed from forehead in the past. She had a benign thyroid biopsy in the past. FAMILY HISTORY: Ovarian cancer and melanoma. Lung cancer, skin cancer as well as heart disease and hypertension. SOCIAL HISTORY: 1 pack per day smoker. Occasional alcohol use. REVIEW OF SYSTEMS: 14 systems reviewed. No chest pain or palpitations. Other systems negative or noncontributory other than above and per preadmission questionnaire. PHYSICAL EXAMINATION: GENERAL: No acute distress. HEENT: Sclerae nonicteric. NECK: No JVD. CHEST: Breath sounds symmetrical. No current wheezes. CVS: Regular rate and rhythm. ABDOMEN: Soft. EXTREMITIES: No significant edema. NEURO: Alert and oriented, moving extremities symmetrically. PSYCH: Full mood and affect. RECTAL: Deferred until time of endoscopy exam. IMPRESSION: 1. HISTORY OF RECTAL CANCER. HAS HAD SOME CHEMO AND RADIATION. NEEDS FOLLOW-UP COLONOSCOPY FOR FURTHER EVALUATION PRIOR TO DECIDING ON DEFINITIVE PROCEDURE. Risks and benefits explained in detail, but not limited to, bleeding; infection; risk of bowel injury or perforation; risk of missed or nondiagnosis or incomplete exam; general risk of anesthesia or sedation; risk of bowel prep, but not limited to. Consent obtained. Will proceed with outpatient follow-up colonoscopy to evaluate treatment effects prior to planned surgical intervention regarding her rectal cancer.
[2022-01-30] MEDS ORDERED: DIPRIVAN 200 MG/20 ML IV ONE ×2 (12:13→12:25)
[2022-01-30] MEDS ORDERED: Xylocaine-Mpf 2% 5 Ml Vial ONE (12:13)
[2022-01-30] MEDS ORDERED: ATROPINE SULFATE 1MG ONE (12:17)
[2022-01-30] MEDS ORDERED: Sodium Chloride 0.9% 10 ML FLUSH Syringe PORT FLUSH PRN (13:40)
[2022-01-30 14:00] VITALS: O2SAT 100
[2022-01-30 14:03] VITALS: BP 128/70; PULSE 73
--- NOTE | 2022-01-31 14:10 | OP ---
SURGERY DATE: 01/30/2022 SURGERY TIME: 1213 PREOPERATIVE DIAGNOSIS: 1. HISTORY OF RECTAL CANCER STATUS POST CHEMO AND RADIATION. NEED FOR REEVALUATION PRIOR TO PLANNING SURGICAL INTERVENTION. POSTOPERATIVE DIAGNOSIS: 1. FAIR BOWEL PREP. 2. SMALL TRANSVERSE COLON POLYP. 3. MILD DIVERTICULOSIS LEFT COLON. 4. SMALL VAGUE RAISED AREA VS HYPERPLASIA SIGMOID COLON. 5. ULCER AT TREATMENT SITE RECTUM. PROCEDURE: 1. Colonoscopy to cecum with hot biopsy polypectomy small transverse colon polyp. 2. Hot biopsy of small vague raised area. 3. Cold biopsy of rectal cancer treatment site. SURGEON: Dr. Keyon Lee. ANESTHESIA: MAC. ESTIMATED BLOOD LOSS: Minimal. INDICATIONS: As noted above. Risks and benefits explained in detail, but not limited to. Consent obtained. DESCRIPTION OF PROCEDURE AND FINDINGS: The patient was taken to the OR. MAC anesthesia introduced. After official time-out, no disagreement in planned procedure. Digital rectal exam revealed the palpable treatment site that seemed to be about 6 or 7 cm from the anal verge. Video colonoscope inserted and passed up to the treatment site. There was an ulcer, but the mass-like area seemed to have actually improved from previous. Cold biopsy was taken of this area at the end of the procedure. The scope was then navigated around to the cecum. Prep was overall fair. Appendiceal orifice and valve were documented. The scope was carefully withdrawn over the next 8-9 minutes. Small early polyp vs hyperplastic polyp in the transverse colon was removed with hot biopsy forceps and brief bursts of cautery. Another small raised area in the sigmoid colon. Whether this is hyperplasia or hyperplasia mucosa, was biopsied with hot biopsy forceps and brief bursts of cautery. Good hemostasis noted. She did have some mild diverticulosis in the left colon. Otherwise, scope pulled back to the rectal area, seemed to be about 6 or 7 cm from the anal verge. Cold biopsy of the area around the ulcer was accomplished. Good hemostasis noted. Scope was withdrawn. Again, what seemed to be 6 or 7 cm up, it was felt she was a candidate to attempt a low anterior resection in the future, possibly would require temporary diverting ostomy. There was no family to discuss findings with at this time.
== END 2022-01-30 13:50 | disposition home or self-care (01) ==
LOC: SDC 10:33
PROVIDERS: ATTEND Surgery
DX: Z08 Encounter for follow-up examination after completed treatment for malignant neoplasm (principal); Z85.048 Personal history of other malignant neoplasm of rectum, rectosigmoid junction, and anus; K63.5 Polyp of colon; K57.30 Diverticulosis of large intestine without perforation or abscess without bleeding; K62.6 Ulcer of anus and rectum; K62.1 Rectal polyp
CPT/HCPCS: J0461; J1642; J2704

== ENCOUNTER 2024-08-14 14:15 | Emergency (ER) | payer MEDICARE ==
[2024-08-14 14:39] VITALS: TEMP 98.3; O2SAT 98
--- NOTE | 2024-08-14 14:56 | XRAY ---
Indication: Chest pain. Comparison: October 12, 2021 Portable chest demonstrates new left Port-A-Cath. Lungs again hyperinflated and clear with incidental left base calcified granuloma. Heart not enlarged. Bony thorax intact again with osteopenia and mild degenerative changes. Impression: Continued nonacute chest with chronic features.
[2024-08-14 14:57] LABS: Absolute Neutrophil Ct (ANC) 3.99 x10^3/uL (1.56-6.13); BASOPHIL % 0.5 % (0.1-1.2); Basophil (Absolute #) 0.03 x10^3/uL (0.01-0.08); Eosinophil % 0.8 % (0.7-5.8); Eosinophil (Absolute #) 0.05 x10^3/uL (0.04-0.36); Hematocrit 39.5 % (34.1-44.9); Hemoglobin 12.9 g/dL (11.2-15.7); IMMATURE GRAN # 0.02 x10^3u/L (0.001-0.031); IMMATURE GRAN % 0.3 % (0.001-0.429); Lymphocyte (Absolute #) 1.45 x10^3/uL (1.18-3.74); Lymphocytes % 23.2 % (19.3-51.7); Mean Cell Volume 85.5 fL (79.4-94.8); Mean Corpuscular Hemoglobin 27.9 pg (25.6-32.2); Mean Corpuscular Hgb Concent. 32.7 g/dL (32.2-35.5); Mean Platelet Volume 8.5 fL (9.4-12.3); Monocyte (Absolute #) 0.72 x10^3/uL (0.24-0.86); Monocytes % 11.5 % (4.7-12.5); Neutrophil % 63.7 % (34.0-71.1); Platelet Count 269 x10^3/uL (182-369); Red Blood Count 4.62 x10^6/uL (3.93-5.22); Red Cell Distribution Width 19.9 % (11.7-14.4); White Blood Count 6.3 x10^3/uL (3.98-10.04)
[2024-08-14] MEDS ORDERED: Sodium Chloride 0.9% 1000 ML 1,000 ML ONE (15:08)
[2024-08-14 15:09] LABS: ALBUMIN 4.4 g/dL (3.5-5.0); BILIRUBIN,TOTAL 0.5 mg/dL (0.2-1.3); Calcium 9.7 mg/dL (8.4-10.2); Creatinine 1 0.75 mg/dL (0.52-1.04); EST GLOMERULAR FILTRATION RATE 85.6 ML/MIN; Potassium 4.3 mmol/L (3.5-5.1); Total Protein 7.4 g/dL (6.3-8.2)
[2024-08-14] MEDS: Sodium Chloride 0.9% 1000 ML 1,000 ML IV SCH (15:11)
[2024-08-14 15:21] LABS: NT PRO BNPII 110 pg/mL (<300); TROPONIN < 0.012 ng/mL (0.000-0.033)
--- NOTE | 2024-08-14 17:04 | XRAY ---
Indication: Short of breath. Pulmonary [place]. Multiple contiguous axial images obtained through the chest using 80 cc Isovue 370 contrast and PE protocol. Comparison: July 26, 2017 Good opacification pulmonary arteries to include the lobar and segmental branches. No pulmonary embolus. Heart not enlarged with new left Port-A-Cath. Aorta again minimally arteriosclerotic without aneurysm/dissection. No pathologic mediastinal/hilar lymphadenopathy. Lungs inflated and clear again with incidental small left lower lobe calcified granuloma. Bony thorax intact. Limited upper abdomen again demonstrates 4 mm hepatic cyst/hemangioma. Impression: Again normal CT chest pulmonary embolism exam with incidental old granulomatous disease and tiny hepatic cyst/hemangioma.
--- NOTE | 2024-08-14 17:52 | ERPHSYRPT ---
- History of Present Illness Time Seen by Provider: 08/14/24 14:40 Source: patient Exam Limitations: no limitations Patient Subjective Stated Complaint: Pt reports she was riding as passenger in car when she started experiencing left sided chest pain at breast going into her back and became diaphoretic at that time. Pt reports she has cardiac hx of having "mild heart attack". Pt took baby aspirin on the way to hospital. Triage Nursing Assessment: Pt alert and oriented x3. Respirations easy/nonlabored. Skin w/p/d. Ambulated to ED cot without difficulty. S1 and S2 auscultated, no rubs/gallops heard. Timing/Duration: today Severity: mild Allergies/Adverse Reactions: sumatriptan [From Imitrex] Allergy (Verified 08/14/24 14:28) sumatriptan succinate [From Imitrex] Allergy (Verified 08/14/24 14:28) alprazolam [From Xanax] Adverse Reaction (Mild, Verified 08/14/24 14:28) overly sedated with 1/2 of small dose naproxen [From Naprosyn] Adverse Reaction (Verified 08/14/24 14:28) Home Medications: Metoprolol Tartrate 50 mg PO DAILY 02/02/16 [History] Albuterol 2.5 mg/0.5 ml [PROVENTIL Solution 2.5 MG/0.5 ML] 2.5 mg IH UD 1 10/08/16 [History] Fluticasone/Umeclidin/Vilanter [Trelegy Ellipta 100-62.5-25] 1 each IH DAILY 09/28/21 [History] Miscellaneous Medication Order See Rx Instructions .ROUTE .COMPLEX 08/14/24 [History] Oxycodone HCl/Acetaminophen [Oxycodone-Acetaminophen 5-325] 1 tab PO Q6H PRN PRN 08/14/24 [History] Promethazine HCl 25 mg [Phenergan 25 mg] 25 mg PO Q6HPRN PRN 08/14/24 [History] Tramadol HCl 50 mg [Ultram 50 mg] 1 tab PO Q6HPRN PRN 08/14/24 [History] Hx Tetanus, Diphtheria Vaccination/Date Given: Yes Hx Influenza Vaccination/Date Given: No Hx Pneumococcal Vaccination/Date Given: No Travel Risk - International Travel Have you traveled outside of the country in past 3 weeks: No - Emerging Infectious Disease Are you exhibiting symptoms associated with any current EIDs: No - Past Medical History Pertinent Past Medical History: Yes Neurological History: Migraines, TIA, Other ENT History: Glaucoma Cardiac History: Hypertension Respiratory History: Asthma, COPD, Other Endocrine Medical History: Hyperthyroidism Musculoskeletal History: Other GI Medical History: GERD History: No Pertinent History Psycho-Social History: No Pertinent History Female Reproductive Disorders: No Pertinent History Other Medical History: Migraines, pinched nerve in back and neck. dysphagia, rectal cancer, colostomy - Past Surgical History Past Surgical History: Yes Neuro Surgical History: No Pertinent History Cardiac: No Pertinent History Respiratory: No Pertinent History Gastrointestinal: No Pertinent History Genitourinary: No Pertinent History Musculoskeletal: No Pertinent History Female Surgical History: Section, Tubal Ligation Other Surgical History: D/C, Dermoid cyst removed from head, thyroid bx- benign, port placement October 2021, scraping of pelvic floor, colostomy Significant Family History: no pertinent family hx - Social History Smoking Status: Current every day smoker How long have you smoked: 30 years Exposure to second hand smoke: Yes Alcohol Use: Socially Drug Use: marijuana Patient Lives Alone: No - Social Determinants of Health Will the patient participate in the screening: Declined to provide - Nursing Vital Signs Nursing Vital Signs: Initial Vital Signs Temperature 98.3 F 08/14/24 14:16 Pulse Rate 82 08/14/24 14:16 Respiratory Rate 18 08/14/24 14:16 Blood Pressure 148/79 08/14/24 14:16 O2 Sat by Pulse Oximetry 98 08/14/24 14:16 Pain Scale Pain Intensity 2 - Physical Exam General Appearance: no apparent distress Eye Exam: PERRL/EOMI Ears, Nose, Throat Exam: normal ENT inspection Neck Exam: normal inspection Respiratory Exam: normal breath sounds Cardiovascular Exam: regular rate/rhythm Gastrointestinal/Abdomen Exam: soft, normal bowel sounds Skin Exam: normal color, warm, dry SpO2 Interpretation: normal SpO2: 98 Ordered Tests: Active Orders 24 hr Category Date Time Status EKG-ER Only STAT Care 08/14/24 14:34 Active IV Insertion STAT Care 08/14/24 14:34 Active CHEST 1 VIEW (PORTABLE) Stat Exams 08/14/24 14:34 Completed CHEST WITH CONTRAST [CT] Stat Exams 08/14/24 15:35 Completed CBC W DIFF Stat Lab 08/14/24 14:50 Completed CMP Stat Lab 08/14/24 14:50 Completed D-DIMER QUANTITATIVE Stat Lab 08/14/24 14:50 Completed NT PRO BNPII Stat Lab 08/14/24 14:50 Completed TROPONIN Q4H Lab 08/14/24 14:50 Completed TROPONIN Q4H Lab 08/14/24 18:25 Completed TROPONIN Q4H Lab 08/14/24 22:45 Ordered Medication Summary Generic Name Dose Route Start Last Admin Trade Name Freq PRN Reason Stop Dose Admin Sodium Chloride 1,000 mls @ 50 mls/hr 08/14/24 14:45 08/14/24 15:11 Sodium Chloride 0.9% 1000 Ml IV 09/13/24 14:44 50 mls/hr .Q20H GILMER Administration Lab/Rad Data: Laboratory Result Diagrams 08/14/24 14:50 08/14/24 14:50 Laboratory Results 08/14/24 08/14/24 08/14/24 Range/Units 18:25 14:50 14:50 WBC (3.98-10.04) x10^3/uL RBC (3.93-5.22) x10^6/uL Hgb (11.2-15.7) g/dL Hct (34.1-44.9) % MCV (79.4-94.8) fL MCH (25.6-32.2) pg MCHC (32.2-35.5) g/dL RDW (11.7-14.4) % Plt Count (182-369) x10^3/uL MPV (9.4-12.3) fL Gran % (34.0-71.1) % Immature Gran % (Auto) (0.001-0.429) % Nucleat RBC Rel Count (0.00-0.2) % Eos # (Auto) (0.04-0.36) x10^3/uL Immature Gran # (Auto) (0.001-0.031) x10^3u/L Absolute Lymphs (auto) (1.18-3.74) x10^3/uL Absolute Monos (auto) (0.24-0.86) x10^3/uL Absolute Nucleated RBC (0.00-0.012) x10^3u/L Lymphocytes % (19.3-51.7) % Monocytes % (4.7-12.5) % Eosinophils % (0.7-5.8) % Basophils % (0.1-1.2) % Absolute Granulocytes (1.56-6.13) x10^3/uL Basophils # (0.01-0.08) x10^3/uL D-Dimer 0.93 H* (0.0-0.50) mg/L Sodium (135-145) mmol/L Potassium (3.5-5.1) mmol/L Chloride (98-107) mmol/L Carbon Dioxide (22-30) mmol/L Anion Gap (5-15) MEQ/L BUN (7-17) mg/dL Creatinine (0.52-1.04) mg/dL Estimated GFR ML/MIN Glucose (74-106) mg/dL Calcium (8.4-10.2) mg/dL Total Bilirubin (0.2-1.3) mg/dL AST (14-36) U/L ALT (0-35) U/L Alkaline Phosphatase (38-126) U/L Troponin I < 0.012 < 0.012 (0.000-0.033) ng/mL NT-Pro-B Natriuret Pep 110 (<300) pg/mL Serum Total Protein (6.3-8.2) g/dL Albumin (3.5-5.0) g/dL 08/14/24 08/14/24 Range/Units 14:50 14:50 WBC 6.3 (3.98-10.04) x10^3/uL RBC 4.62 (3.93-5.22) x10^6/uL Hgb 12.9 (11.2-15.7) g/dL Hct 39.5 (34.1-44.9) % MCV 85.5 (79.4-94.8) fL MCH 27.9 (25.6-32.2) pg MCHC 32.7 (32.2-35.5) g/dL RDW 19.9 H (11.7-14.4) % Plt Count 269 (182-369) x10^3/uL MPV 8.5 L (9.4-12.3) fL Gran % 63.7 (34.0-71.1) % Immature Gran % (Auto) 0.3 (0.001-0.429) % Nucleat RBC Rel Count 0.0 (0.00-0.2) % Eos # (Auto) 0.05 (0.04-0.36) x10^3/uL Immature Gran # (Auto) 0.02 (0.001-0.031) x10^3u/L Absolute Lymphs (auto) 1.45 (1.18-3.74) x10^3/uL Absolute Monos (auto) 0.72 (0.24-0.86) x10^3/uL Absolute Nucleated RBC 0.00 (0.00-0.012) x10^3u/L Lymphocytes % 23.2 (19.3-51.7) % Monocytes % 11.5 (4.7-12.5) % Eosinophils % 0.8 (0.7-5.8) % Basophils % 0.5 (0.1-1.2) % Absolute Granulocytes 3.99 (1.56-6.13) x10^3/uL Basophils # 0.03 (0.01-0.08) x10^3/uL D-Dimer (0.0-0.50) mg/L Sodium 139 (135-145) mmol/L Potassium 4.3 (3.5-5.1) mmol/L Chloride 105 (98-107) mmol/L Carbon Dioxide 28 (22-30) mmol/L Anion Gap 11.0 (5-15) MEQ/L BUN 18 H (7-17) mg/dL Creatinine 0.75 (0.52-1.04) mg/dL Estimated GFR 85.6 ML/MIN Glucose 97 (74-106) mg/dL Calcium 9.7 (8.4-10.2) mg/dL Total Bilirubin 0.50 (0.2-1.3) mg/dL AST 24 (14-36) U/L ALT 19 (0-35) U/L Alkaline Phosphatase 101 (38-126) U/L Troponin I (0.000-0.033) ng/mL NT-Pro-B Natriuret Pep (<300) pg/mL Serum Total Protein 7.4 (6.3-8.2) g/dL Albumin 4.4 (3.5-5.0) g/dL - Progress Progress Note: 08/14/24 19:00 Patient was seen and evaluated for chest pain which she developed while she was driving back from [place] initially she thought it was gastritis as she history of a history of GERD and gastritis, she took a Tums without any relief. She then continued to drive and still had some discomfort in the epigastric region she took an aspirin with some relief. However since the pain persisted she decided to come in for evaluation. She states she has no chest pain at this time however would like to be evaluated she denies any fevers or chills or nausea or vomiting. Chest pain protocol labs were obtained these are within normal limits initial and repeat troponin are within normal limit. CT PE study was obtained this revealed Impression: Again normal CT chest pulmonary embolism exam with incidental old granulomatous disease and tiny hepatic cyst/hemangioma. Patient was updated with the results she feels better and wants to go home she does not want to wait for a third troponin she will follow-up with her primary care provider and obtain outpatient testing Medical Desision Making - Discussion of managment Agreed on:: need for follow-up Will see patient: In office - Departure Departure Disposition: Home Clinical Impression: SOB (shortness of breath), Chest pain Condition: Stable Critical Care Time: No Referrals: ANA MIKE MD [Primary Care Provider] - Follow up/PCP as directed
[2024-08-14 18:14] VITALS: BP 165/90; PULSE 78
[2024-08-14 19:08] VITALS: RESP 15
== END 2024-08-14 19:08 | disposition home or self-care (01) ==
LOC: ED 14:15
DX: R07.9 Chest pain, unspecified (principal); R06.02 Shortness of breath; F17.200 Nicotine dependence, unspecified, uncomplicated
CPT/HCPCS: 36415; 71045; 71260; 80053; 83880; 84484; 85025; 85379; 93005; 99284